=== PATIENT | female | born 1990 | race Caucasian/White ===

== ENCOUNTER 2022-07-06 16:23 | Emergency (ER) | payer BC ==
[2022-07-06 17:23] VITALS: TEMP 98
[2022-07-06] MEDS ORDERED: SODIUM CHLORIDE 0.9% 1,000 ML IV STA (18:36)
[2022-07-06] MEDS ORDERED: diphenhydrAMINE 50 MG/ML 1 ML VIAL IVP STA (18:36)
[2022-07-06] MEDS ORDERED: ACETAMINOPHEN IV (For NPO) 1,000 MG in EMPTY BAG 1 BAG IVPB STA (18:36)
[2022-07-06] MEDS ORDERED: METOCLOPRAMIDE 5 MG/ML 2 ML VIAL IVP STA (18:36)
--- NOTE | 2022-07-06 18:42 | ED ---
Headache HPI - General Chief Complaint: Headache Stated Complaint: Headache-16 weeks preg Time Seen by Provider: 07/06/22 18:02 Source: patient, family, RN notes reviewed Mode of arrival: ambulatory Limitations: no limitations - History of Present Illness Initial Comments: This is a 32-year-old female who is 16 weeks and presents to the emergency department for a headache. A couple of hours ago, she started to develop a headache, blurred vision, light/sound sensitivity, and nausea. She is currently being treated for preeclampsia and gestational diabetes. She takes labetalol 100 mg twice daily, however she has not taken her second dose today because she has felt nauseous. This is her third , and she is a patient of Dr. Tran. She does have an appointment with Dr. Tran in 2 days. She has had gestational diabetes and preeclampsia in her prior pregnancies, however she has never had the symptoms she is having today. Denies any vaginal bleeding or discharge. Denies any fevers, chills, sore throat, cough, dyspnea, chest pain, palpitations, abdominal pain, vomiting, diarrhea, or back pain. MD Complaint: headache Onset Description: gradual Associated Symptoms: nausea, photophobia, sensitivity to sound - Related Data Home Medications Medication Instructions Recorded Confirmed Aspirin EC [Ecotrin Low Dose] 81 mg PO DAILY 07/06/22 07/06/22 Citalopram Hydrobromide [CeleXA] 10 mg PO DAILY 07/06/22 07/06/22 Labetalol [Trandate] 100 mg PO BID 07/06/22 07/06/22 Omeprazole 40 mg PO DAILY 07/06/22 07/06/22 Vit No.179/Iron/Folic 1 tab PO HS 07/06/22 07/06/22 [ Tablet] Allergies Allergy/AdvReac Type Severity Reaction Status Date / Time No Known Allergies Allergy Verified 07/06/22 19:00 Review of Systems ROS Statement: Those systems with pertinent positive or pertinent negative responses have been documented in the HPI. ROS Other: All systems not noted in ROS Statement are negative. Past Medical History Past Medical History: Hypertension History of Any Multi-Drug Resistant Organisms: None Reported Past Surgical History: Cholecystectomy Past Psychological History: No Psychological Hx Reported Smoking Status: Never smoker Past Alcohol Use History: None Reported Past Drug Use History: None Reported General Exam Limitations: no limitations General appearance: alert, in no apparent distress Head exam: Present: atraumatic, normocephalic, normal inspection Eye exam: Present: normal appearance, PERRL, EOMI. Absent: scleral icterus, conjunctival injection, periorbital swelling Neck exam: Present: normal inspection. Absent: tenderness, meningismus, lymphadenopathy Respiratory exam: Present: normal lung sounds bilaterally. Absent: respiratory distress, wheezes, rales, rhonchi, stridor Cardiovascular Exam: Present: regular rate, normal rhythm, normal heart sounds. Absent: systolic murmur, diastolic murmur, rubs, gallop, clicks Neurological exam: Present: alert, oriented X3, CN II-XII intact Psychiatric exam: Present: normal affect, normal mood Skin exam: Present: warm, dry, intact, normal color. Absent: rash Course Vital Signs 07/06/22 07/06/22 07/06/22 17:20 19:20 20:47 Temperature 98 F Pulse Rate 90 78 81 Respiratory 18 18 16 Rate Blood Pressure 146/98 138/88 126/80 O2 Sat by Pulse 98 100 100 Oximetry Medical Decision Making - Medical Decision Making This is a 32-year-old female who presents to the emergency department for a headache, nausea, and light/sound sensitivity. Lab work was nonactionable. While she does have elevated blood pressure, she has no proteinuria or elevated uric acid at this time. heart tones were obtained and found to be within normal limits at 152 bpm. She was given IV fluids, Reglan, Benadryl, and Ofirmev. Patient was a candidate for Ofirmev, as she is and unable to take NSAIDs. She was also nauseous and unable to tolerate oral intake. Patient noted marked improvement after administration of medications. She was unable to take her oral labetalol and vitamin as well as eat a sandwich without difficulty. After the oral labetalol, her blood pressure improved to the 120s systolically. Missing her dose of the labetalol secondary to nausea likely contributed to elevated blood pressure, inducing her symptoms. Patient feels stable for discharge home. She will follow up with Dr. Tran in 2 days as scheduled. Advised dtyy-stw-snxzbwa vitamin B6 and Unisom as needed for nausea and vomiting. She may also take Benadryl and Tylenol for any headaches. Return precautions reviewed in depth, the patient is instructed to return to the emergency department with any new, worsening, or concerning symptoms. Patient verbalized understanding. This case was discussed in detail with the attending ED physician. Presentation, findings, and treatment plan discussed in detail as well. - Lab Data Result diagrams: 07/06/22 18:52 07/06/22 18:52 Lab Results 07/06/22 07/06/22 07/06/22 Range/Units 18:52 18:52 19:07 WBC 8.8 (3.8-10.6) k/uL RBC 4.43 (3.80-5.40) m/uL Hgb 12.3 (11.4-16.0) gm/dL Hct 37.8 (34.0-46.0) % MCV 85.4 (80.0-100.0) fL MCH 27.8 (25.0-35.0) pg MCHC 32.5 (31.0-37.0) g/dL RDW 14.2 (11.5-15.5) % Plt Count 238 (150-450) k/uL MPV 7.5 Neutrophils % 68 % Lymphocytes % 24 % Monocytes % 5 % Eosinophils % 2 % Basophils % 0 % Neutrophils # 6.0 (1.3-7.7) k/uL Lymphocytes # 2.1 (1.0-4.8) k/uL Monocytes # 0.4 (0-1.0) k/uL Eosinophils # 0.1 (0-0.7) k/uL Basophils # 0.0 (0-0.2) k/uL Sodium 138 (137-145) mmol/L Potassium 3.8 (3.5-5.1) mmol/L Chloride 105 (98-107) mmol/L Carbon Dioxide 21 L (22-30) mmol/L Anion Gap 12 mmol/L BUN 4 L (7-17) mg/dL Creatinine 0.43 L (0.52-1.04) mg/dL Est GFR (CKD-EPI)AfAm >90 (>60 ml/min/1.73 sqM) Est GFR (CKD-EPI)NonAf >90 (>60 ml/min/1.73 sqM) Glucose 75 (74-99) mg/dL Uric Acid 2.7 L (3.7-7.4) mg/dL Calcium 9.2 (8.4-10.2) mg/dL Magnesium 1.9 (1.6-2.3) mg/dL Total Bilirubin 0.1 L (0.2-1.3) mg/dL AST 21 (14-36) U/L ALT 14 (4-34) U/L Alkaline Phosphatase 107 (38-126) U/L Total Protein 7.3 (6.3-8.2) g/dL Albumin 4.0 (3.5-5.0) g/dL HCG, Quant 09396.3 mIU/mL Urine Color Colorless Urine Appearance Clear (Clear) Urine pH 7.0 (5.0-8.0) Ur Specific [place] 1.003 (1.001-1.035) Urine Protein Negative (Negative) Urine Glucose (UA) Negative (Negative) Urine Ketones Negative (Negative) Urine Blood Negative (Negative) Urine Nitrite Negative (Negative) Urine Bilirubin Negative (Negative) Urine Urobilinogen <2.0 (<2.0) mg/dL Ur Leukocyte Esterase Negative (Negative) Disposition Clinical Impression: Pre-eclampsia, Headache in Disposition: HOME SELF-CARE Instructions (If sedation given, give patient instructions): Preeclampsia During (ED) Additional Instructions: Return to the emergency department with any new, worsening, or concerning symptoms. Continue taking all of her medications as prescribed. Make sure that you remain well-hydrated. You may take [id number]-ipe-[id number] vitamin B6 and Unisom for any nausea or vomiting. You may also take Benadryl and Tylenol for any headaches. Follow up with Dr. Tran as scheduled. Is patient prescribed a controlled substance at d/c from ED?: No Referrals: Nonstaff,Physician [Primary Care Provider] - 1-2 days
[2022-07-06 19:05] LABS: Basophils % (A) 0 %; Eosinophils # (A) 0.1 k/uL (0-0.7); Eosinophils % (A) 2 %; HCT 37.8 % (34.0-46.0); HGB 12.3 gm/dL (11.4-16.0); Lymphocytes # (A) 2.1 k/uL (1.0-4.8); Lymphocytes % (A) 24 %; MCH 27.8 pg (25.0-35.0); MCHC 32.5 g/dL (31.0-37.0); MCV 85.4 fL (80.0-100.0); Mean Platelet Volume 7.5; Monocytes # (A) 0.4 k/uL (0-1.0); Monocytes % (A) 5 %; Neutrophils % (A) 68 %; Platelet Count 238 k/uL (150-450); RBC 4.43 m/uL (3.80-5.40); RDW 14.2 % (11.5-15.5); WBC 8.8 k/uL (3.8-10.6)
[2022-07-06 19:14] LABS: ALT 14 U/L (4-34); AST 21 U/L (14-36); African American GFR (CKD) >90 (>60 ml/min/1.73 sqM); Alkaline Phosphatase 107 U/L (38-126); Anion Gap 12 mmol/L; Blood Urea Nitrogen 4 mg/dL (7-17); Calcium 9.2 mg/dL (8.4-10.2); Carbon Dioxide 21 mmol/L (22-30); Chloride 105 mmol/L (98-107); Glucose 75 mg/dL (74-99); Magnesium 1.9 mg/dL (1.6-2.3); Non-African American GFR(CKD) >90 (>60 ml/min/1.73 sqM); Potassium 3.8 mmol/L (3.5-5.1); Sodium 138 mmol/L (137-145); Total Bilirubin 0.1 mg/dL (0.2-1.3); Total Protein 7.3 g/dL (6.3-8.2); Uric Acid 2.7 mg/dL (3.7-7.4)
[2022-07-06 19:16] LABS: Appearance,Urine Clear (Clear); Bilirubin,Urine Negative (Negative); Blood,Urine Negative (Negative); Color,Urine Colorless; Glucose,Urine (UA) Negative (Negative); Ketones,Urine Negative (Negative); Leukocyte Esterase,Urine Negative (Negative); Nitrite,Urine Negative (Negative); Protein,Urine Negative (Negative); Specific Gravity,Urine 1.003 (1.001-1.035); Urobilinogen,Urine <2.0 mg/dL (<2.0)
[2022-07-06 20:00] LABS: HCG,Quantitative Serum 18872.3 mIU/mL
[2022-07-06 20:48] VITALS: BP 126/80; PULSE 81; RESP 16
== END 2022-07-06 20:47 | disposition home or self-care (01) ==
LOC: EC 16:23
DX: O14.92 Unspecified pre-eclampsia, second trimester (principal); R51.9 Headache, unspecified; O99.891 Other specified diseases and conditions complicating pregnancy; Z3A.16 16 weeks gestation of pregnancy; Z88.2 Allergy status to sulfonamides; Z79.899 Other long term (current) drug therapy
CPT/HCPCS: 36415; 80053; 83735; 84550; 85025; 81003; 84702; 99284; 96365; 96375; 96361; J1200; J2765; J0131; 99283

== ENCOUNTER 2022-11-01 16:28 | Outpatient (CLI) | payer BC ==
[2022-11-01 17:53] LABS: Appearance,Urine Cloudy (Clear); Bacteria,Urine Many /hpf; Bilirubin,Urine Negative (Negative); Blood,Urine Negative (Negative); Color,Urine Light Yellow; Glucose,Urine (UA) Negative (Negative); Ketones,Urine Negative (Negative); Leukocyte Esterase,Urine Small (Negative); Nitrite,Urine Negative (Negative); PH, Urine 6.5 (5.0-8.0); Protein,Urine Negative (Negative); RBC,Urine 3 /hpf (0-5); Specific Gravity,Urine 1.007 (1.001-1.035); Squamous Epithelial Cell,Urine 8 /hpf (0-4); Urobilinogen,Urine <2.0 mg/dL (<2.0); WBC,Urine 6 /hpf (0-5)
[2022-11-01 17:59] LABS: Creatinine,Urine Random 51.9 mg/dL; Protein/Creatinine Ratio,Urine 0.289
[2022-11-01 19:10] LABS: Basophils % (A) 0 %; Eosinophils # (A) 0.1 k/uL (0-0.7); Eosinophils % (A) 1 %; HCT 28.6 % (34.0-46.0); HGB 9.5 gm/dL (11.4-16.0); Hypochromasia Slight; Lymphocytes # (A) 1.6 k/uL (1.0-4.8); Lymphocytes % (A) 21 %; MCH 27.3 pg (25.0-35.0); MCHC 33.4 g/dL (31.0-37.0); MCV 81.9 fL (80.0-100.0); Mean Platelet Volume 7.9; Monocytes # (A) 0.4 k/uL (0-1.0); Monocytes % (A) 5 %; Neutrophils # (A) 5.6 k/uL (1.3-7.7); Neutrophils % (A) 72 %; Platelet Count 192 k/uL (150-450); RBC 3.49 m/uL (3.80-5.40); RDW 15.5 % (11.5-15.5); WBC 7.8 k/uL (3.8-10.6)
[2022-11-01 19:19] LABS: ALT 14 U/L (4-34); AST 19 U/L (14-36); African American GFR (CKD) >90 (>60 ml/min/1.73 sqM); Blood Urea Nitrogen 4 mg/dL (7-17); LDH 323 U/L (313-618); Non-African American GFR(CKD) >90 (>60 ml/min/1.73 sqM); Uric Acid 3.7 mg/dL (3.7-7.4)
[2022-11-01 20:57] VITALS: BP 140/81; PULSE 96; RESP 16; TEMP 97.8
--- NOTE | 2022-11-17 19:40 | P.MSEPDOC ---
Presenting Problems - Arrival Data Date of Arrival on Unit: 11/01/22 Time of Arrival on Unit: 16:28 Mode of Transport: Ambulatory - Complaint OB-Reason for Admission/Chief Complaint: Headache, Visual Disturbances Comment: Rule out PIH Medical History - Information : 3 Para: 2 Term: 2 : 0 Abortions: Spontaneous or Elective: 0 Number of Living Children: 2 - Gestational Age Gestational Age by CHOCO (wks/days): 33 Weeks and 3 Days Review of Systems - Review of Systems Constitutional: No problems Breast: No problems ENT: No problems Cardiovascular: No problems Respiratory: No problems Gastrointestinal: No problems Genitourinary: No problems Musculoskeletal: No problems Neurological: No problems Skin: No problems Vital Signs - Temperature Temperature: 97.8 F Temperature Source: Oral - Pulse Right Sitting Pulse Rate: 96 Pulse Assessment Method: Automatic Cuff - Respirations Respiratory Rate: 16 Oxygen Delivery Method: Room Air O2 Sat by Pulse Oximetry: 98 - Blood Pressure Right Arm Sitting Blood Pressure: 140/81 Blood Pressure Mean: 100 Blood Pressure Source: Automatic Cuff Medical Screen Scoring - Assessment - Baby A Baseline FHR: 115 Heart Rate - NICHD Category: Category I (Normal) NST: Reactive Physician Notification - Physician Notified Physician Notified Date: 11/01/22 Physician Notified Time: 16:38 Physician: Violeta Tran New Order Received: Yes - Notification Comment Comment: PIH labs, UA sent Maternal Triage Index - Maternal Triage Index Presenting for scheduled procedure w/no complaint: No - Stat/Priority 1 Stat Priority 1: No - Urgent/Priority 2 Urgent Priority 2: No - Prompt/Priority 3 Prompt Priority 3: No - Non-Urgent/Priority 4 Non-Urgent Priority 4: Yes Criteria Met for Priority 4: c/o headache. BP 140/81 Disposition - Disposition OB Disposition: Discharge to home, Written follow up instructions reviewed Discharge Date: 11/01/22 Discharge Time: 19:40 I agree with the RN Medical Screening Exam: No Physician's MSE Comment: Patient seen or examined by myself, and incomplete documentation without workup. Case reviewed; plan agreed upon as documented in EMR&OBIX.: No Diagnosis: RELATED CONDITIONS, UNSPECIFIED, THIRD TRIMESTER
== END 2022-11-01 19:40 | disposition home or self-care (01) ==
LOC: FBPOP 16:28
PROVIDERS: ATTEND Obstetrics & Gynecology Obstetrics
DX: O26.893 Other specified pregnancy related conditions, third trimester (principal); Z3A.33 33 weeks gestation of pregnancy; R51.9 Headache, unspecified; H53.9 Unspecified visual disturbance; Z91.040 Latex allergy status
CPT/HCPCS: 36415; 59025; 81001; 82565; 82570; 83615; 84156; 84450; 84460; 84520; 84550; 85025; 99215

== ENCOUNTER 2022-11-29 21:38 | Outpatient (CLI) | payer BC ==
[2022-11-29 22:40] VITALS: BP 136/78; PULSE 83; RESP 18; TEMP 97.5
--- NOTE | 2022-12-03 10:30 | P.MSEPDOC ---
Presenting Problems - Arrival Data Date of Arrival on Unit: 11/29/22 Time of Arrival on Unit: 21:38 Mode of Transport: Wheelchair - Complaint OB-Reason for Admission/Chief Complaint: Vaginal Bleeding Medical History - Information : 3 Para: 2 Term: 2 : 0 Abortions: Spontaneous or Elective: 0 Number of Living Children: 2 - Gestational Age Gestational Age by CHOCO (wks/days): 37 Weeks and 3 Days - History Complications: GDM Review of Systems - Review of Systems Constitutional: No problems Breast: No problems ENT: No problems Cardiovascular: No problems Respiratory: No problems Gastrointestinal: No problems Genitourinary: No problems Musculoskeletal: No problems Neurological: No problems Skin: No problems Vital Signs - Temperature Temperature: 97.5 F Temperature Source: Temporal Artery Scan - Pulse Right Brachial Pulse Rate: 83 Pulse Assessment Method: Automatic Cuff - Respirations Respiratory Rate: 18 Oxygen Delivery Method: Room Air O2 Sat by Pulse Oximetry: 97 - Blood Pressure Right Arm Blood Pressure: 136/78 Blood Pressure Mean: 97 Blood Pressure Source: Automatic Cuff Medical Screen Scoring - Cervical Exam Dilation (cm): 1 Effacement (%): 60 Station: -3 Membranes: Intact - Assessment - Baby A Baseline FHR: 130 Heart Rate - NICHD Category: Category I (Normal) NST: Reactive Physician Notification - Physician Notified Physician Notified Date: 11/29/22 Physician Notified Time: 22:12 Physician: Ngozi Li Order Received: Yes - Notification Comment Comment: Dr. Li given report on pt. Pt c/o of bright red bleeding on toilet paper after wiping. VS WNL. Reactive NST. Vag exam of 1/thick/high. No blood noted on exam glove. Pt has apt on 12/[address] Tran and is sched. for IOL on 12/03. Orders received to d/c pt to home. To educate pt nothing in vagina until apt on Tuesday. Maternal Triage Index - Non-Urgent/Priority 4 Non-Urgent Priority 4: Yes Criteria Met for Priority 4: Pt reports few spots of bright red blood on toilet paper after wiping. No blood noted in triage. Disposition - Disposition OB Disposition: Physician follow up in office, Discharge to home Discharge Date: 11/29/22 Discharge Time: 22:25 I agree with the RN Medical Screening Exam: Yes Case reviewed; plan agreed upon as documented in EMR&OBIX.: Yes Diagnosis: FALSE LABOR BEFORE 37 COMPLETED WEEKS OF GEST, THIRD TRI
== END 2022-11-29 22:25 | disposition home or self-care (01) ==
LOC: FBPOP 21:38
PROVIDERS: ATTEND Obstetrics & Gynecology
DX: O47.03 False labor before 37 completed weeks of gestation, third trimester (principal); Z3A.37 37 weeks gestation of pregnancy; Z91.040 Latex allergy status
CPT/HCPCS: 59025; 99213

== ENCOUNTER 2022-12-03 05:54 | Inpatient (IN) | payer BC ==
[2022-12-03] MEDS ORDERED: TERBUTALINE 1 MG/ML VIAL SQ PRN (06:05)
[2022-12-03] MEDS ORDERED: LIDOCAINE 0.5% (PF) 5 MG/ML (50 ML SDV) SQ PRN (06:05)
[2022-12-03] MEDS ORDERED: CARBOPROST TROMETHAMINE 250 MCG/ML 1 ML AMP IM PRN (06:05)
[2022-12-03] MEDS ORDERED: METHYLERGONOVINE 0.2 MG/ML 1 ML AMP IM PRN (06:05)
[2022-12-03] MEDS ORDERED: TRANEXAMIC ACID IN NACL,ISO-OS 1,000 MG in EMPTY BAG 1 BAG IV PRN (06:05)
[2022-12-03] MEDS ORDERED: miSOPROStoL 200 MCG TAB PO PRN (06:05)
[2022-12-03] MEDS ORDERED: OXYTOCIN 30 UNITS/500 ML NS 30 UNIT in SALINE 1 500ML.BAG IV SCH ×2 (06:15→20:30)
[2022-12-03] MEDS ORDERED: LACTATED RINGERS 1,000 ML IV SCH (06:15)
[2022-12-03 06:22] LABS: Glucose,Whole Blood 131 mg/dL (70-110)
[2022-12-03 06:36] LABS: Basophils % (A) 0 %; Eosinophils # (A) 0.1 k/uL (0-0.7); Eosinophils % (A) 1 %; HCT 29.6 % (34.0-46.0); HGB 9.4 gm/dL (11.4-16.0); Hypochromasia Slight; Lymphocytes # (A) 1.8 k/uL (1.0-4.8); Lymphocytes % (A) 25 %; MCH 24.6 pg (25.0-35.0); MCHC 31.7 g/dL (31.0-37.0); MCV 77.5 fL (80.0-100.0); Mean Platelet Volume 7.9; Microcytosis Slight; Monocytes # (A) 0.3 k/uL (0-1.0); Monocytes % (A) 4 %; Neutrophils # (A) 4.9 k/uL (1.3-7.7); Neutrophils % (A) 68 %; Platelet Count 239 k/uL (150-450); RBC 3.82 m/uL (3.80-5.40); WBC 7.2 k/uL (3.8-10.6)
[2022-12-03 06:38] VITALS: RESP 16
[2022-12-03] MEDS: LACTATED RINGERS 1,000 ML IV SCH ×4 (06:40→17:55)
[2022-12-03] MEDS: OXYTOCIN 30 UNITS/500 ML NS 30 UNIT in SALINE 1 500ML.BAG IV SCH ×2 (06:51→20:50)
[2022-12-03] MEDS ORDERED: LABETALOL 100 MG TAB PO SCH (09:00)
--- NOTE | 2022-12-03 09:08 | P.HPOB ---
History of Present Illness H&P Date: 12/03/22 Chief Complaint: IUP @ 38 weeks, GDM, HTN This is a 32 yo at 38 weeks EDC 12/17 based on LMP c/w first trimester US. Patient has been receiving routine care with myself which has been complicated by diagnosis of gestational diabetes. Patient had gestational diabetes with her prior pregnancies. Blood sugars have been good throughout the . Patient in addition has a diagnosis of hypertension which is been controlled on labetalol 100 mg twice a day. Patient notes good movement denies contractions vaginal bleeding or loss of fluid. On blood work patient's blood type of O+, rubella status immune, RPR is nonreactive, hep Pretty surface antigen is negative, HIV is negative. Patient did fail her 1 hour gestational diabetes screen without audible 142 given her prior history she requested to just be treated as a diabetic in not to her 3 hour gtt. Group beta strep culture was negative on 11/23. Review of Systems Constitutional: Denies chills, Denies fatigue, Denies fever Ears, nose, mouth and throat: Denies headache Cardiovascular: Reports leg edema Respiratory: Denies dyspnea Gastrointestinal: Denies constipation, Denies diarrhea, Denies nausea, Denies vomiting Genitourinary: Reports Past Medical History Past Medical History: Hypertension Additional Past Medical History / Comment(s): GDM History of Any Multi-Drug Resistant Organisms: None Reported Past Surgical History: Cholecystectomy Past Anesthesia/Blood Transfusion Reactions: No Reported Reaction Past Psychological History: No Psychological Hx Reported Smoking Status: Never smoker Past Alcohol Use History: None Reported Past Drug Use History: None Reported - Past Family History Mother Additional Family Medical History / Comment(s): Bipolar Medications and Allergies Home Medications Medication Instructions Recorded Confirmed Type Citalopram Hydrobromide [CeleXA] 10 mg PO DAILY 07/06/22 12/03/22 History Labetalol [Trandate] 100 mg PO DAILY 07/06/22 12/03/22 History Omeprazole 40 mg PO DAILY 07/06/22 12/03/22 History Vit No.179/Iron/Folic 1 tab PO HS 07/06/22 12/03/22 History [ Tablet] Allergies Allergy/AdvReac Type Severity Reaction Status Date / Time latex AdvReac Itching Verified 12/03/22 06:02 Exam Osteopathic Statement: *. No significant issues noted on an osteopathic structural exam other than those noted in the History and Physical/Consult. Vital Signs Temp Pulse Resp BP Pulse Ox 12/03/22 06:01 96.9 F L 92 16 136/91 97 Intake and Output 12/02/22 12/03/22 12/03/22 22:59 06:59 14:59 Other: Weight 83.915 kg Targeted physical exam is performed and state in general this a well-nourished well-developed female in no acute distress reading is noted to be nonlabored, heart has a regular rhythm, abdomen is gravid and appropriate for gestational age, exam she is 2/50/-2 station amniotomy is performed and clear fluid was obtained. heart tones are noted to be category 1 and she is yandel every 3 minutes. Results Result Diagrams: 12/03/22 06:17 Abnormal Lab Results - Last 24 Hours (Table) 12/03/22 12/03/22 Range/Units 06:17 06:20 Hgb 9.4 L (11.4-16.0) gm/dL Hct 29.6 L (34.0-46.0) % MCV 77.5 L (80.0-100.0) fL MCH 24.6 L (25.0-35.0) pg RDW 16.0 H (11.5-15.5) % POC Glucose (mg/dL) 131 H (70-110) mg/dL Assessment and Plan (1) Term Current Visit: Yes Status: Acute Code(s): Z34.90 - ENCNTR FOR SUPRVSN OF NORMAL , UNSP, UNSP TRIMESTER SNOMED Code(s): 80919620 (2) GDM (gestational diabetes mellitus), class A1 Current Visit: Yes Status: Acute Code(s): O24.410 - GESTATIONAL DIABETES MELLITUS IN , DIET CONTROLLED SNOMED Code(s): 13118188 (3) HTN (hypertension) Current Visit: Yes Status: Acute Code(s): I10 - ESSENTIAL (PRIMARY) HYPERTENSION SNOMED Code(s): 38199459 Plan: This is a 32 yo at 38 weeks that presents for induction of labor s econdary to GDM, HTN. Patient is admitted to labor and delivery and Pitocin induction of labor is begun. Once regular contractions were appreciated amniotomy was performed and clear fluid was obtained. Patient is offered epidural, Stadol, or nitrous for pain control during labor. Patient states she does wish epidural placement when appropriate. Anticipate spontaneous vaginal delivery later today.
[2022-12-03] MEDS ORDERED: BUTORPHANOL 1 MG/ML 1 ML VIAL IV PRN (09:09)
[2022-12-03] MEDS ORDERED: fentaNYL (PF) 50 MCG/ML 5 ML AMP ONE (12:19)
[2022-12-03] MEDS ORDERED: SODIUM CHLORIDE 0.9% 100 ML BAG ONE (12:19)
[2022-12-03] MEDS ORDERED: ROPIVACAINE 5 MG/ML 20 ML AMPULE ONE (12:19)
[2022-12-03] MEDS ORDERED: diphenhydrAMINE 50 MG/ML 1 ML VIAL IVP PRN ×2 (20:23)
[2022-12-03] MEDS ORDERED: diphenhydrAMINE 50 MG CAP PO PRN (20:23)
[2022-12-03] MEDS ORDERED: diphenhydrAMINE 25 MG CAP PO PRN (20:23)
[2022-12-03] MEDS ORDERED: LANOLIN CREAM 5 GM TUBE TOPICAL PRN (20:23)
[2022-12-03] MEDS ORDERED: BENZOCAINE/MENTHOL SPRAY 1 GM/SPRAY AEROSOL TOPICAL PRN (20:23)
[2022-12-03] MEDS ORDERED: ZOLPIDEM 5 MG TAB PO PRN (20:23)
[2022-12-03] MEDS ORDERED: HYDROCORTISONE 2.5% RECTAL CREAM 30 GM TUBE RECTAL PRN (20:23)
[2022-12-03] MEDS ORDERED: SIMETHICONE 80 MG CHEWABLE PO PRN (20:23)
--- NOTE | 2022-12-03 20:28 | P.PROBDLV ---
Vaginal Delivery Note - . Vaginal Delivery Note: 32-year-old 3 para 2001 at 30-0/7 weeks that presented for induction of labor secondary to gestational diabetes and chronic hypertension. Patient has been receiving routine care with myself which has been essentially uncomplicated despite diagnosis of gestational diabetes and hypertension. Blood sugars have been well controlled. Blood pressures have been controlled with oral labetalol. Patient was admitted to labor and delivery in labor was begun. Amniotomy was performed and clear fluid was obtained. Patient progressed through labor eventually becoming uncomfortable and requested epidural placement. Epidural was placed without difficulty by the anesthesia department. Patient made slow progress through labor but eventually was noted to be complete. Patient began pushing in occiput posterior presentation was suspected. Patient continued pushing and with excellent maternal effort brought the infant down to a presentation, occiput posterior presentation was noted. Patient had a normal spontaneous vaginal delivery of a viable male at 1954, after two-minute delayed the umbilical cord was doubly clamped and cut. Spontaneous cry was appreciated. The placenta was delivered spontaneous intact with a three-vessel cord being noted. Uterus is noted be firm and below the umbilicus. Latex free catheter was placed and approximately 100 mL of clear yellow urine was obtained. Inspection of the patient's vaginal vault a second-degree vaginal laceration was appreciated. This was repaired in the usual fashion with 3-0 Rapide. Estimated blood loss 200 mL Patient and tolerated delivery well and are resting comfortably. All counts are noted to be correct 2 at the end of delivery.
[2022-12-03] MEDS: IBUPROFEN 600 MG TAB PO SCH (20:31)
[2022-12-03] MEDS: LABETALOL 100 MG TAB PO SCH (20:46)
[2022-12-03] MEDS: PRENATAL VIT-IRON-FOLIC ACID 1 EACH TABLET PO SCH (20:46)
[2022-12-04] MEDS: IBUPROFEN 600 MG TAB PO SCH ×4 (02:30→18:45)
[2022-12-04 08:12] LABS: Basophils % (A) 0 %; Eosinophils # (A) 0.1 k/uL (0-0.7); Eosinophils % (A) 1 %; HCT 26.6 % (34.0-46.0); HGB 8.8 gm/dL (11.4-16.0); Hypochromasia Slight; Lymphocytes # (A) 1.9 k/uL (1.0-4.8); Lymphocytes % (A) 17 %; MCH 25.7 pg (25.0-35.0); Mean Platelet Volume 8.3; Microcytosis Slight; Monocytes # (A) 0.5 k/uL (0-1.0); Monocytes % (A) 5 %; Neutrophils # (A) 8.2 k/uL (1.3-7.7); Neutrophils % (A) 76 %; Platelet Count 199 k/uL (150-450); RBC 3.42 m/uL (3.80-5.40); WBC 10.9 k/uL (3.8-10.6)
[2022-12-04] MEDS: SENNOSIDES-DOCUSATE SODIUM 1 EACH TAB PO SCH ×2 (08:27→21:06)
[2022-12-04] MEDS: LABETALOL 100 MG TAB PO SCH ×2 (08:27→21:06)
[2022-12-04] MEDS: CITALOPRAM HYDROBROMIDE 10 MG TAB PO SCH (08:27)
--- NOTE | 2022-12-04 09:17 | P.PNOBGVD ---
Subjective - Subjective Principal diagnosis: day #1 status post normal spontaneous vaginal delivery Interval history: Patient is doing well this morning. She is ambulating and voiding without difficulty. She is tolerating a regular diet without nausea or vomiting. States her pain is well-controlled. Lochia is moderate. There remains in the nursery on high flow oxygen. Patient reports: Reports appetite normal, Reports voiding normally, Reports pain well controlled, Reports ambulating normally [place]: doing well (In nursery on high flow oxygen) Objective - Latest Vital Signs Latest vital signs: Vital Signs Temp Pulse Resp BP Pulse Ox 12/04/22 08:00 97.7 F 68 16 138/89 99 12/04/22 04:00 97.9 F 84 16 136/76 12/03/22 23:50 98.4 F 80 16 130/77 12/03/22 22:08 78 16 122/80 12/03/22 21:38 78 16 130/71 12/03/22 21:08 76 16 134/72 12/03/22 20:53 90 16 138/69 12/03/22 20:38 85 16 125/59 12/03/22 20:23 85 16 131/66 12/03/22 20:12 97.8 F 95 16 141/76 Intake and Output 12/03/22 12/04/22 12/04/22 22:59 06:59 14:59 Intake Total 283.833 Output Total 475 Balance -191.167 Intake: Intake, IV Titration 283.833 Amount Oxytocin 30 Units/500 ml 283.833 Ns 30 unit In Saline 1 500ml.bag @ Per Protocol IV .Q0M [facility] Rx#:[id number] Output: Urine 100 Estimated Blood Loss 200 Output, Quantitative 175 Blood Loss Other: # Voids 1 1 - Exam Extremities: Present: normal, edema Abdomen: Present: normal appearance, soft Uterus: Present: normal, firm - Labs Labs: Abnormal Lab Results - Last 24 Hours (Table) 12/04/22 Range/Units 07:58 WBC 10.9 H (3.8-10.6) k/uL RBC 3.42 L (3.80-5.40) m/uL Hgb 8.8 L (11.4-16.0) gm/dL Hct 26.6 L (34.0-46.0) % MCV 78.0 L (80.0-100.0) fL RDW 16.0 H (11.5-15.5) % Neutrophils # 8.2 H (1.3-7.7) k/uL Assessment and Plan (1) Term Current Visit: Yes Status: Acute Code(s): Z34.90 - ENCNTR FOR SUPRVSN OF NORMAL , UNSP, UNSP TRIMESTER SNOMED Code(s): 65126750 (2) GDM (gestational diabetes mellitus), class A1 Current Visit: Yes Status: Acute Code(s): O24.410 - GESTATIONAL DIABETES MELLITUS IN , DIET CONTROLLED SNOMED Code(s): 91903432 (3) HTN (hypertension) Current Visit: Yes Status: Acute Code(s): I10 - ESSENTIAL (PRIMARY) HYPERTENSION SNOMED Code(s): 53476307 (4) Status post vaginal delivery Current Visit: Yes Status: Acute Code(s): BNZ1086 - SNOMED Code(s): 144002612 (5) Occiput posterior presentation of fetus Current Visit: Yes Status: Acute Code(s): O64.0XX0 - OBSTRUCTED LABOR DUE TO INCMPL ROTATION OF HEAD, UNSP SNOMED Code(s): 10865866 Plan: 32-year-old status post normal spontaneous vaginal delivery. Patient is doing well . Given infant is in the nursery will stay an additional day. Continue routine care and anticipate discharge home tomorrow
[2022-12-04] MEDS: ACETAMINOPHEN TAB 325 MG TAB PO PRN ×3 (10:11→21:04)
[2022-12-04] MEDS: PRENATAL VIT-IRON-FOLIC ACID 1 EACH TABLET PO SCH (21:06)
[2022-12-05] MEDS: IBUPROFEN 600 MG TAB PO SCH ×3 (00:04→19:13)
[2022-12-05] MEDS: LABETALOL 100 MG TAB PO SCH ×2 (08:38→20:57)
[2022-12-05] MEDS: CITALOPRAM HYDROBROMIDE 10 MG TAB PO SCH (08:39)
[2022-12-05] MEDS: ACETAMINOPHEN TAB 325 MG TAB PO PRN ×2 (08:39→17:21)
[2022-12-05] MEDS: SENNOSIDES-DOCUSATE SODIUM 1 EACH TAB PO SCH ×2 (08:45→19:17)
--- NOTE | 2022-12-05 09:31 | P.DS ---
Providers Date of admission: 12/03/22 05:54 Expected date of discharge: 12/05/22 Attending physician: Violeta Tran Primary care physician: Physician Nonstaff - Discharge Diagnosis(es) (1) Term Current Visit: Yes Status: Acute (2) GDM (gestational diabetes mellitus), class A1 Current Visit: Yes Status: Acute (3) HTN (hypertension) Current Visit: Yes Status: Acute (4) Status post vaginal delivery Current Visit: Yes Status: Acute (5) Occiput posterior presentation of fetus Current Visit: Yes Status: Acute Hospital Course: This is a 32-year-old 3 now para 3 that presented to labor and delivery on 12/03 for scheduled induction of labor secondary to gestational diabetes and chronic hypertension. Patient's care has been essentially uncomplicated despite diagnosis of GDM and hypertension. Her sugars have been well-controlled hypertension has been controlled on oral labetalol. For full details on this patient please see the dictated history and physical. Patient was admitted and Pitocin induction of labor was begun. Patient made slow progress through labor but did become uncomfortable and requested epidural placement. Epidural was placed without difficulty by the anesthesia department. Patient progressed slowly toward complete and began pushing. Patient had a normal spontaneous vaginal delivery of a viable male infant at 1954, weight of 6 lbs. 9 oz. in an occiput posterior presentation. Apgars of 7 and 8 at one and 5 minutes respectively. did end up going to special care nursery for high flow oxygen and on this day #2 is currently doing well on room air. Anticipate discharge home of the tomorrow. Mom continues to do well. She is ambulating and voiding without difficulty, she states her pain is well- controlled. She denies concerns. She states she is ready for discharge home. Patient Condition at Discharge: Good Plan - Discharge Summary New Discharge Prescriptions: No Action Omeprazole 40 mg PO DAILY Labetalol [Trandate] 100 mg PO DAILY Citalopram Hydrobromide [CeleXA] 10 mg PO DAILY Vit No.179/Iron/Folic [ Tablet] 1 tab PO HS Discharge Medication List Citalopram Hydrobromide [CeleXA] 10 mg PO DAILY 07/06/22 [History] Labetalol [Trandate] 100 mg PO DAILY 07/06/22 [History] Omeprazole 40 mg PO DAILY 07/06/22 [History] Vit No.179/Iron/Folic [ Tablet] 1 tab PO HS 07/06/22 [History] Follow up Appointment(s)/Referral(s): Violeta Tran DO [Doctor of Osteopathic Medicine] - 4 Weeks Patient Instructions/Handouts: Vaginal Delivery (GEN), Vaginal Delivery (DC) Activity/Diet/Wound Care/Special Instructions: Ekaa-ltt-ximorhb ibuprofen as needed for pain. No tub baths or intercourse until 6 weeks . Patient is to call and schedule routine visit in 4 weeks . Patient is to call the office should she have any concerns prior to this routine appointment. Discharge Disposition: HOME SELF-CARE
[2022-12-05 15:16] VITALS: TEMP 98
[2022-12-05 19:43] VITALS: BP 157/92; PULSE 64
[2022-12-05] MEDS: PRENATAL VIT-IRON-FOLIC ACID 1 EACH TABLET PO SCH (20:57)
== END 2022-12-05 20:59 | disposition home or self-care (01) | DRG 806 ==
LOC: 4FBP 05:54
PROVIDERS: ADMIT Obstetrics & Gynecology Obstetrics; ATTEND Obstetrics & Gynecology Obstetrics
PROC: 0KQM0ZZ Repair Perineum Muscle, Open Approach (ICD-10-PCS; principal; 2022-12-03)
PROC: 10E0XZZ Delivery of Products of Conception, External Approach (ICD-10-PCS; principal; 2022-12-03)
PROC: 3E033VJ Introduction of Other Hormone into Peripheral Vein, Percutaneous Approach (ICD-10-PCS; 2022-12-03)
PROC: 10907ZC Drainage of Amniotic Fluid, Therapeutic from Products of Conception, Via Natural or Artificial Opening (ICD-10-PCS; 2022-12-03)
DX: O24.420 Gestational diabetes mellitus in childbirth, diet controlled (principal); O10.92 Unspecified pre-existing hypertension complicating childbirth; Z37.0 Single live birth; Z28.310 Unvaccinated for COVID-19; O70.1 Second degree perineal laceration during delivery; Z3A.38 38 weeks gestation of pregnancy; Z79.899 Other long term (current) drug therapy; Z91.040 Latex allergy status
CPT/HCPCS: 85025; 86850; 86900; 86901

== ENCOUNTER 2022-12-08 23:01 | Inpatient (IN) | payer BC ==
[2022-12-08 23:34] LABS: Appearance,Urine Clear (Clear); Bilirubin,Urine Negative (Negative); Blood,Urine Negative (Negative); Color,Urine Colorless; Glucose,Urine (UA) Negative (Negative); Ketones,Urine Negative (Negative); Leukocyte Esterase,Urine Negative (Negative); Nitrite,Urine Negative (Negative); Protein,Urine Negative (Negative); Specific Gravity,Urine 1.002 (1.001-1.035); Urobilinogen,Urine <2.0 mg/dL (<2.0)
[2022-12-08] MEDS ORDERED: MAGNESIUM SULFATE GM 6 GM in SODIUM CHLORIDE 0.9% 100 ML IVPB ONE (23:39)
[2022-12-08] MEDS ORDERED: hydrALAZINE HCL 20 MG/ML 1 ML VIAL IVP PRN (23:39)
[2022-12-08] MEDS ORDERED: CALCIUM GLUCONATE 1 GM/10 ML VIAL IV PRN (23:39)
[2022-12-08] MEDS ORDERED: LABETALOL 5 MG/ML VIAL MDV IVP PRN ×3 (23:39)
[2022-12-08 23:49] LABS: Creatinine,Urine Random 11.9 mg/dL; Protein/Creatinine Ratio,Urine 1.765
[2022-12-09] LABS: Anisocytosis Slight; Basophils % (A) 0 %; Eosinophils # (A) 0.3 k/uL (0-0.7); Eosinophils % (A) 3 %; HCT 29.8 % (34.0-46.0); HGB 9.7 gm/dL (11.4-16.0); Lymphocytes # (A) 2.1 k/uL (1.0-4.8); Lymphocytes % (A) 26 %; MCH 25.6 pg (25.0-35.0); MCHC 32.5 g/dL (31.0-37.0); MCV 78.8 fL (80.0-100.0); Mean Platelet Volume 7.2; Microcytosis Slight; Monocytes # (A) 0.4 k/uL (0-1.0); Monocytes % (A) 5 %; Neutrophils # (A) 5.1 k/uL (1.3-7.7); Neutrophils % (A) 64 %; Platelet Count 279 k/uL (150-450); RBC 3.78 m/uL (3.80-5.40); RDW 16.6 % (11.5-15.5); WBC 7.9 k/uL (3.8-10.6)
[2022-12-09] MEDS: LACTATED RINGERS 1,000 ML IV SCH ×2 (00:20→09:57)
[2022-12-09] MEDS ORDERED: SODIUM CHLORIDE 0.9% 100 ML BAG ONE (00:20)
[2022-12-09] MEDS ORDERED: MAGNESIUM SULFATE 500 MG/ML 20 ML VIAL ONE (00:20)
[2022-12-09 00:26] LABS: ALT 29 U/L (4-34); AST 31 U/L (14-36); African American GFR (CKD) >90 (>60 ml/min/1.73 sqM); Blood Urea Nitrogen 9 mg/dL (7-17); LDH 620 U/L (313-618); Non-African American GFR(CKD) >90 (>60 ml/min/1.73 sqM); Uric Acid 4.9 mg/dL (3.7-7.4)
[2022-12-09] MEDS: MAGNESIUM SULFATE-WATER PMX 20 GM in WATER FOR INJECTION 1 500ML.BAG IV SCH ×3 (00:43→19:55)
[2022-12-09] MEDS ORDERED: LABETALOL 100 MG TAB PO SCH (09:00)
[2022-12-09] MEDS: CITALOPRAM HYDROBROMIDE 10 MG TAB PO SCH (11:51)
[2022-12-09] MEDS ORDERED: IBUPROFEN 600 MG TAB PO STA (13:50)
[2022-12-09] MEDS ORDERED: IBUPROFEN 600 MG TAB PO PRN (13:54)
[2022-12-09] MEDS: ACETAMINOPHEN TAB 325 MG TAB PO PRN ×2 (14:08→20:16)
--- NOTE | 2022-12-09 15:01 | P.HPOB ---
History of Present Illness H&P Date: 12/09/22 Chief Complaint: HTN, PPD 5 32-year-old status post normal spontaneous vaginal delivery approximately 5 days ago. Patient presented last evening with complaints of headache and elevated blood pressures. Patient has known essential hypertension and is on la betalol 50 mg twice daily. Patient's blood pressures have been well controlled throughout the . Patient had negative preeclampsia labs on admission but did see receive IV labetalol 40 mg. Patient was begun on 100 mg labetalol twice daily. Patient remains asymptomatic with the exception of a mild headache. Allan was draining clear yellow urine throughout the night. Review of Systems Constitutional: Reports fatigue, Denies chills, Denies fever Ears, nose, mouth and throat: Reports headache Cardiovascular: Reports leg edema Respiratory: Denies dyspnea Gastrointestinal: Denies constipation, Denies diarrhea, Denies nausea, Denies vomiting Genitourinary: Reports Past Medical History Past Medical History: Hypertension Additional Past Medical History / Comment(s): GDM History of Any Multi-Drug Resistant Organisms: None Reported Past Surgical History: Cholecystectomy Past Anesthesia/Blood Transfusion Reactions: No Reported Reaction Past Psychological History: No Psychological Hx Reported Smoking Status: Never smoker Past Alcohol Use History: None Reported Past Drug Use History: None Reported - Past Family History Mother Additional Family Medical History / Comment(s): Bipolar Medications and Allergies Home Medications Medication Instructions Recorded Confirmed Type Citalopram Hydrobromide [CeleXA] 10 mg PO DAILY 07/06/22 12/08/22 History Labetalol [Trandate] 100 mg PO DAILY 07/06/22 12/08/22 History Omeprazole 40 mg PO DAILY 07/06/22 12/08/22 History Vit No.179/Iron/Folic 1 tab PO HS 07/06/22 12/08/22 History [ Tablet] Allergies Allergy/AdvReac Type Severity Reaction Status Date / Time latex AdvReac Itching Verified 12/08/22 23:10 Exam Osteopathic Statement: *. No significant issues noted on an osteopathic structural exam other than those noted in the History and Physical/Consult. Vital Signs Temp Pulse Resp BP Pulse Ox 12/09/22 08:00 97.2 F L 90 16 134/92 12/09/22 06:00 70 15 156/95 12/09/22 05:00 97.2 F L 68 16 154/83 100 01/12/23 04:00 85 16 121/71 97 12/09/22 03:00 60 16 156/81 96 12/09/22 02:00 62 14 142/85 12/09/22 01:00 60 16 138/72 12/09/22 00:51 67 18 139/83 99 12/09/22 00:45 60 16 139/82 100 12/09/22 00:39 68 16 141/79 99 12/09/22 00:30 99 16 152/77 99 12/09/22 00:15 97.6 F 57 L 16 184/93 100 12/08/22 23:45 52 L 18 181/92 Intake and Output 12/08/22 12/09/22 12/09/22 22:59 06:59 14:59 Output Total 4400 800 Balance -4400 -800 Output: Urine 4400 800 Uretheral (Allan) 1100 Other: # Voids 1 Weight 81.647 kg 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 Uterus is firm and below the umbilicus. Results Result Diagrams: 12/08/22 23:48 12/08/22 23:48 Abnormal Lab Results - Last 24 Hours (Table) 12/08/22 12/08/22 Range/Units 23:48 23:48 RBC 3.78 L (3.80-5.40) m/uL Hgb 9.7 L (11.4-16.0) gm/dL Hct 29.8 L (34.0-46.0) % MCV 78.8 L (80.0-100.0) fL RDW 16.6 H (11.5-15.5) % Lactate Dehydrogenase 620 H (313-618) U/L Assessment and Plan (1) hypertension Current Visit: Yes Status: Acute Code(s): O16.5 - UNSPECIFIED MATERNAL HYPERTENSION, COMP THE PUERPERIUM SNOMED Code(s): 42946377 (2) Status post vaginal delivery Current Visit: No Status: Acute Code(s): OLB9802 - SNOMED Code(s): 017165539 Plan: 32-year-old status post normal spontaneous vaginal delivery approximately 5 days ago. Patient does have a known history of essential hypertension and was on the labetalol prior to admission. Patient came in last evening with complaints of headache and elevated blood pressures 180s over 90s. Patient was admitted and magnesium sulfate GTT was begun. Patient's labs were essentially normal overnight. This morning patient is feeling mildly improved with a mild headache remaining. We'll continue magnesium for 12 hours. We'll monitor blood pressures closely and adjust labetalol as needed.
--- NOTE | 2022-12-09 15:22 | P.PN ---
Progress Note - Text Progress Note Date: 12/09/22 32-year-old status post normal spontaneous vaginal delivery approximately 5 days ago with known essential hypertension. Patient had been treated with labetalol throughout the . Patient states last evening elevated blood pressures began. The current history and physical for full details of admission. Patient has since had her magnesium discontinued after 12 hours. Blood pressures noted to be 130s 150s over 90s. Labetalol was increased to 200 mg twice daily from 100 mg. Patient's headache that she noted with the magnesium is slowly subsiding after a dose of Tylenol. Allan catheter was discontinued, urine output was good throughout the night and day. A/ s/p PP HTN she doesnt appear to PP pre e to me upon evaluation P/ increase labetalol to 200 mg bid anticipate d/c home tomorrow
[2022-12-09] MEDS: LABETALOL 200 MG TAB PO SCH (17:27)
[2022-12-10] MEDS: LABETALOL 200 MG TAB PO SCH ×3 (00:20→21:50)
[2022-12-10] MEDS: CITALOPRAM HYDROBROMIDE 10 MG TAB PO SCH (08:06)
[2022-12-10] MEDS ORDERED: NIFEdipine XL 30 MG TAB.ER.24 PO STA (11:03)
--- NOTE | 2022-12-10 11:22 | P.PN ---
Subjective Progress Note Date: 12/10/22 Principal diagnosis: preeclampsia the patient 40 having no symptoms of any kind today. She specifically denies headaches, scotomata, or epigastric pain. There is no significant edema. She is otherwise performing all activities of daily living and would like to go h ome. Objective - Vital Signs Vital signs: Vital Signs Temp 98.3 F 12/10/22 08:08 Pulse 68 12/10/22 10:56 Resp 16 12/10/22 08:08 BP 171/102 12/10/22 10:56 Pulse Ox 97 12/09/22 15:09 FiO2 Intake & Output 12/09/22 12/10/22 12/10/22 18:59 06:59 18:59 Intake Total 460 Output Total 3400 Balance -2940 Weight 76.975 kg Intake: Intake, IV Titration 460 Amount Magnesium Sulfate-Water 460 Pmx 20 gm In Water For Injection 1 500ml.bag @ 2 GM/HR 50 mls/hr IV .Q10H ANGELO Rx#:[id number] Output: Urine 3400 Uretheral (Allan) 300 Other: # Voids 1 - Exam in general, this is a well-developed, well-nourished white female in no acute distress. Her fundus is tonic and nontender below the umbilicus. She has no significant edema in her extremities. - Labs CBC & Chem 7: 12/08/22 23:48 12/08/22 23:48 Assessment and Plan (1) hypertension Current Visit: Yes Status: Acute Code(s): O16.5 - UNSPECIFIED MATERNAL HYPE RTENSION, COMP THE PUERPERIUM SNOMED Code(s): 11240441 Plan: the patient's blood pressures remained labile and relatively high despite labetalol 200 mg twice daily. Her pressures are too high to allow discharge at this time despite her lack of symptoms. Procardia XL 30 mg has been ordered stat at this time and then once daily. The patient does have the capability to follow blood pressures at home once she is discharged but I have discussed with her that she is not stable for discharge at this time. Continue observation with closer interval blood pressures after the addition of Procardia XL 30 mg.
[2022-12-10] MEDS ORDERED: hydrALAZINE HCL 20 MG/ML 1 ML VIAL IVP STA (16:16)
[2022-12-10] MEDS ORDERED: NIFEdipine XL 30 MG TAB.ER.24 PO SCH (16:30)
[2022-12-10] MEDS ORDERED: LABETALOL 5 MG/ML VIAL MDV IVP PRN (16:30)
[2022-12-10] MEDS ORDERED: NIFEdipine 10 MG CAP PO SCH (16:45)
[2022-12-10] MEDS ORDERED: ALPRAZolam 0.5 MG TAB PO PRN (16:51)
[2022-12-10] MEDS ORDERED: hydrALAZINE HCL 20 MG/ML 1 ML VIAL IVP PRN (16:53)
--- NOTE | 2022-12-10 16:57 | P.CONS ---
History of Present Illness - Reason for Consult Consult date: 12/10/22 Medical management, hypertension Requesting physician: Frank Levy - Chief Complaint hypertension - History of Present Illness History of Presenting Illness: Patient is a 32-year-old female with a past medical history of anxiety, GERD, preeclampsia and gestational diabetes. She is currently admitted to mother baby unit status post vaginal delivery of her third child (healthy baby boy) on 12/03/22 () followed by discharge on 12/05/22 and returned 5 days later on 12/09/22 with a chief complaint of headache, visual changes and elevated blood pressures. Patient received magnesium infusion, placed on Labetalol 200 mg twice a day and started on nifedipine XL 30 mg daily. Patient did have full resolution of previously reported headache and visual changes but continued to be in hypertensive urgency. Patient's blood pressure 191/102 and we were consulted for assistance with management. Patient seen and fully evaluated at bedside. Patient admits to history of preeclampsia with her first child and gestational diabetes throughout all 3 pregnancies. She otherwise denies having any medical history with the exception of anxiety and GERD. Patient reports she does feel anxious and is very worried because she does not want to get transferred off of mother baby unit because she wants to stay with her baby, she also reports having uncontrolled heartburn since delivery of her baby 7 days ago. Patient states she is not breast-feeding. With the exception of feeling anxious and currently having heartburn patient denies having any headache, changes in vision or hearing, chest pain, palpitations, shortness of breath, or experiencing any numbness/tingling/weakness or swelling in her extremities. Previous labs drawn on 12/08/22 reviewed and stable with hemoglobin of 9.7. Urinalysis was negative for infection. At this time patient to receive hydralazine 10 mg IV push followed by an additional dose of nifedipine 30 mg. We will also treat patient for reports of acid reflux with a GI cocktail. EKG to be obtained. Patient instructed that she may stay on mother baby unit as long as we can obtain control over her blood pressures, however blood pressures remain elevated patient will need to be transferred to a telemetry unit. Review of systems: Pertinent positives and negatives as discussed in HPI, a complete review of systems was performed and all other systems are negative. Physical exam: Vital signs reviewed and stable. General: Nontoxic, no distress and appears stated age. Derm: Skin warm and dry, normal coloration for ethnicity. Head: Atraumatic, normocephalic and symmetric. Eyes: EOMs intact, no lid lag, and anicteric sclera Mouth: no lip lesions, mucus membranes moist Cardiovascular: regular rate and rhythm with normal S1S2, no murmur, positive posterior tibial pulses bilaterally, and cap refill < 2 seconds. Lungs: Respirations even, regular, and unlabored on room air. Lungs CTA bilaterally, no rhonchi, no rales, no wheezing, and no accessory muscle usage. Abdominal: soft, nontender to palpation, no guarding Ext: ROM intact. No gross muscle atrophy, no edema, no contractures Neuro: Speech clear, face symmetrical and CN II-XII grossly intact with no noted focal neuro deficits Psych: Alert and oriented to person, place, time, and situation. Appropriate and pleasant affect. Assessment and Plan of Care: preeclampsia -At this time patient to receive hydralazine 10 mg IV push followed by an additional dose of nifedipine 30 mg. -Labetalol to remain 200 mg by mouth twice daily and nifedipine XL increased to 60 mg daily beginning tomorrow. -EKG to be obtained. -Repeat CBC, CMP, and magnesium. -Vital signs to be assessed every 2 hours and as needed. Uncontrolled GERD -Order placed for GI cocktail with Maalox/Lidocaine/Hyoscyamine and patient may then resume omeprazole daily. Anxiety -Patient to continue Celexa in order placed for Xanax when necessary for severe anxiety. Patient is not breast-feeding. Thank you for allowing us to participate in the care of this pleasant patient. Do not hesitate to contact us with questions. Someone can be reached from the [facility] hospitalist group all hours of the day at [phone] or via [employer].. Arash Pelaez NP rendered care for this patient independently, reviewed the findings and plan as documented in the note above. I did not physically speak with or examine the patient on this date. Discussed at length, if BP continues to be elevated will need transfer to 3S/ICU for tele monitoring Past Medical History Past Medical History: Hypertension Additional Past Medical History / Comment(s): GDM History of Any Multi-Drug Resistant Organisms: None Reported Past Surgical History: Cholecystectomy Past Anesthesia/Blood Transfusion Reactions: No Reported Reaction Past Psychological History: No Psychological Hx Reported Smoking Status: Never smoker Past Alcohol Use History: None Reported Past Drug Use History: None Reported - Past Family History Mother Additional Family Medical History / Comment(s): Bipolar Medications and Allergies Home Medications Medication Instructions Recorded Confirmed Type Citalopram Hydrobromide [CeleXA] 10 mg PO DAILY 07/06/22 12/08/22 History Labetalol [Trandate] 100 mg PO DAILY 07/06/22 12/08/22 History Omeprazole 40 mg PO DAILY 07/06/22 12/08/22 History Vit No.179/Iron/Folic 1 tab PO HS 07/06/22 12/08/22 History [ Tablet] Allergies Allergy/AdvReac Type Severity Reaction Status Date / Time latex AdvReac Itching Verified 12/08/22 23:10 Physical Exam Osteopathic Statement: *. No significant issues noted on an osteopathic structural exam other than those noted in the History and Physical/Consult. Vitals: Vital Signs Temp Pulse Resp BP 12/10/22 15:44 64 14 191/102 12/10/22 13:44 74 155/86 12/10/22 10:56 68 171/102 12/10/22 08:08 98.3 F 72 16 163/91 12/10/22 04:00 99.0 F 72 16 140/76 12/10/22 00:00 98.8 F 71 16 141/80 12/09/22 21:00 99.8 F H 68 16 154/83 12/09/22 19:50 144/100 Intake and Output 12/10/22 12/10/22 12/10/22 06:59 14:59 22:59 Other: # Voids 1 Weight 76.975 kg Results CBC & Chem 7: 12/10/22 16:56 12/10/22 16:56
[2022-12-10] MEDS ORDERED: MAG HYDROX/AL HYDROX/SIMETH 30 ML, HYOSCYAMINE ELIXIR 10 ML, LIDOCAINE VISCOUS 2% 10 ML PO ONE ×3 (17:30)
[2022-12-10 17:44] LABS: Anisocytosis Slight; Basophils % (A) 0 %; Eosinophils # (A) 0.1 k/uL (0-0.7); Eosinophils % (A) 2 %; HCT 33.6 % (34.0-46.0); HGB 10.6 gm/dL (11.4-16.0); Lymphocytes % (A) 25 %; MCH 25.5 pg (25.0-35.0); MCHC 31.6 g/dL (31.0-37.0); MCV 80.8 fL (80.0-100.0); Mean Platelet Volume 7.3; Monocytes # (A) 0.4 k/uL (0-1.0); Monocytes % (A) 5 %; Neutrophils # (A) 5.2 k/uL (1.3-7.7); Neutrophils % (A) 66 %; Platelet Count 370 k/uL (150-450); RBC 4.16 m/uL (3.80-5.40); RDW 16.6 % (11.5-15.5); WBC 7.8 k/uL (3.8-10.6)
[2022-12-10 17:52] LABS: ALT 26 U/L (4-34); AST 25 U/L (14-36); African American GFR (CKD) >90 (>60 ml/min/1.73 sqM); Albumin 3.9 g/dL (3.5-5.0); Alkaline Phosphatase 152 U/L (38-126); Anion Gap 10 mmol/L; Blood Urea Nitrogen 10 mg/dL (7-17); Calcium 8.8 mg/dL (8.4-10.2); Carbon Dioxide 26 mmol/L (22-30); Chloride 105 mmol/L (98-107); Glucose 91 mg/dL (74-99); Magnesium 2.6 mg/dL (1.6-2.3); Non-African American GFR(CKD) >90 (>60 ml/min/1.73 sqM); Potassium 3.7 mmol/L (3.5-5.1); Sodium 141 mmol/L (137-145); Total Bilirubin 0.3 mg/dL (0.2-1.3); Total Protein 7.1 g/dL (6.3-8.2)
[2022-12-11] MEDS: ACETAMINOPHEN TAB 325 MG TAB PO PRN (01:49)
[2022-12-11] MEDS: LABETALOL 200 MG TAB PO SCH (08:54)
[2022-12-11] MEDS ORDERED: NIFEdipine XL 30 MG TAB.ER.24 PO SCH ×2 (09:00)
[2022-12-11] MEDS ORDERED: PANTOPRAZOLE 40 MG TABLET PO SCH (09:00)
[2022-12-11] MEDS: CITALOPRAM HYDROBROMIDE 10 MG TAB PO SCH (09:01)
--- NOTE | 2022-12-11 09:50 | P.PN ---
Subjective Progress Note Date: 12/11/22 Principal diagnosis: hypertension day #8. She is feeling significantly better this morning. Ambulating without dizziness. Heartburn has resolved. Her last hypertensive episode was approximately 1545 yesterday. She was treated with IV hydralazine and 30 mg of nifedipine. She then had symptomatic hypotensive episode with syncope. Her blood pressures were 100s over 50s. This did resolve with IV fluid rehydration and observation. Throughout the night she reports no issues. This morning she received nifedipine 30 mg and labetalol 200 mg. Her blood pressures throughout the night were mainly in the 130s over 70s to 80s. She denies headaches, visual changes, nausea, vomiting or abdominal pain. Her lower extremity swelling is decreasing. She is ambulating and voiding without difficulty. She strongly desires discharge home. Objective - Vital Signs Vital signs: Vital Signs Temp 98.6 F 12/11/22 05:48 Pulse 86 12/11/22 05:48 Resp 16 12/11/22 05:48 BP 127/68 12/11/22 05:48 Pulse Ox 97 12/11/22 05:48 FiO2 Intake & Output 12/10/22 12/11/22 12/11/22 18:59 06:59 18:59 Output Total 75 Balance -75 Weight 75.296 kg Output: Urine 75 Other: # Voids 1 1 - Constitutional General appearance: Present: no acute distress - Respiratory Respiratory: bilateral: CTA - Cardiovascular Rhythm: regular - Gastrointestinal General gastrointestinal: Absent: tenderness - Neurologic Neurologic: Absent: focal deficits - Psychiatric Psychiatric: Present: appropriate affect - Labs CBC & Chem 7: 12/10/22 16:56 12/10/22 16:56 Labs: Abnormal Lab Results - Last 24 Hours (Table) 12/10/22 12/10/22 Range/Units 16:56 16:56 Hgb 10.6 L (11.4-16.0) gm/dL Hct 33.6 L (34.0-46.0) % RDW 16.6 H (11.5-15.5) % Magnesium 2.6 H (1.6-2.3) mg/dL Alkaline Phosphatase 152 H (38-126) U/L Assessment and Plan (1) hypertension Current Visit: Yes Status: Acute Code(s): O16.5 - UNSPECIFIED MATERNAL HYPERTENSION, COMP THE PUERPERIUM SNOMED Code(s): 86884759 (2) HTN (hypertension) Current Visit: No Status: Acute Code(s): I10 - ESSENTIAL (PRIMARY) H YPERTENSION SNOMED Code(s): 01928456 Plan: day #8 with readmission for poorly controlled chronic hypertension versus superimposed preeclampsia. She had significant hypertension yesterday afternoon followed by symptomatic hypotension after receiving antihypertensives. She has now been quite stable throughout the night with blood pressures mainly in the 130s over 70s to 80s. She is asymptomatic. Plan is for probable discharge home on nifedipine 30 mg extended release and labetalol 200 mg twice a day pending input from the medicine team which is appreciated. I recommend close follow-up for blood pressure evaluation in the office within 3-4 days of discharge. Signs and symptoms of hypertension were reviewed and the patient is going to be checking her blood pressures at home. She is advised to contact the on-call physician with any blood pressures systolic greater than 180 or diastolic greater than 100. Time with Patient: Less than 30
--- NOTE | 2022-12-11 09:58 | P.DS ---
Providers Date of admission: 12/08/22 23:43 Expected date of discharge: 12/11/22 Attending physician: Violeta Tran Consults: 12/10/22 16:00 Consult Physician Urgent Consulting Provider: Arelis Gotti Consult Reason/Comments: hypertension Do you want consulting provider notified?: Already Contacted Primary care physician: Stated None - Discharge Diagnosis(es) (1) hypertension Current Visit: Yes Status: Acute (2) HTN (hypertension) Current Visit: No Status: Acute Hospital Course: This is a 32-year-old 3 para 3 woman who had a normal spontaneous vaginal delivery on 12/03/2022, discharged on 12/05/2022. She reports presented with headaches, visual changes and elevated blood pressures. She was admitted for suspected preeclampsia and did receive magnesium sulfate seizure prophylaxis. Her laboratory data was normal. She has a known history of chronic hypertension and was treated throughout her . She had on labile blood pressures during her admission despite labetalol 200 mg twice a day and nifedipine 30 mg extended release was added. Medicine service was consulted. She required IV hydralazine as well as the additional nifedipine. She experienced a hypotensive episode on 12/10/2022 with syncope following the IV antihypertensives. Today she is feeling significantly better with stable blood pressures in the 130s over 70s to 80s. She is ambulating and voiding without difficulty. Laboratory data remains normal. The plan is for discharge home pending input from the medicine service on labetalol 200 mg twice a day and Procardia XL 30 mg. Blood pressure parameters have been reviewed with the patient and she will return to clinic for close blood pressure follow-up. Plan - Discharge Summary New Discharge Prescriptions: New NIFEdipine XL [Procardia XL] 30 mg PO DAILY #30 tab Labetalol [Trandate] 200 mg PO BID #60 tab Acetaminophen Tab [Tylenol] 650 mg PO Q6HR PRN tab PRN Reason: Fever And/ Or Pain Continue Citalopram Hydrobromide [CeleXA] 10 mg PO DAILY Vit No.179/Iron/Folic [ Tablet] 1 tab PO HS Discontinued Labetalol [Trandate] 100 mg PO DAILY No Action Omeprazole 40 mg PO DAILY Discharge Medication List Citalopram Hydrobromide [CeleXA] 10 mg PO DAILY 07/06/22 [History] Omeprazole 40 mg PO DAILY 07/06/22 [History] Vit No.179/Iron/Folic [ Tablet] 1 tab PO HS 07/06/22 [History] Acetaminophen Tab [Tylenol] 650 mg PO Q6HR PRN tab 12/11/22 [Rx] Labetalol [Trandate] 200 mg PO BID #60 tab 12/11/22 [Rx] NIFEdipine XL [Procardia XL] 30 mg PO DAILY #30 tab 12/11/22 [Rx] Follow up Appointment(s)/Referral(s): Violeta Tran DO [Doctor of Osteopathic Medicine] - 12/14/22 Activity/Diet/Wound Care/Special Instructions: Return to the emergency room with any systolic blood pressures greater than 180, diastolic blood pressures greater than 100, severe headache, visual changes, severe abdominal or pelvic pain, redness or swelling of the lower extremities. Discharge Disposition: HOME SELF-CARE
[2022-12-11 10:56] VITALS: BP 134/80; PULSE 72; RESP 18; TEMP 98.2
--- NOTE | 2022-12-11 11:18 | P.PN ---
Subjective Progress Note Date: 12/11/22 Hospital course: Patient is a 32-year-old female with a past medical history of anxiety, GERD, preeclampsia and gestational diabetes. She is currently admitted to mother baby unit status post vaginal delivery of her third child (healthy baby boy) on 12/03/22 () followed by discharge on 12/05/22 and returned 5 days later on 12/09/22 with a chief complaint of headache, visual changes and elevated blood pressures. Patient received magnesium infusion, placed on Labetalol 200 mg twice a day and started on nifedipine XL 30 mg daily. Patient did have full resolution of previously reported headache and visual changes but continued to be in hypertensive urgency. Patient's blood pressure 191/102 and we were consulted for assistance with management. Patient denies having any history of essential hypertension. Patient reports she had preeclampsia with her first but was never placed on antihypertensive medications, states her second was normal and her last she ended up being placed on labetalol late in her second trimester secondary to hypertension. EKG was completed showing normal sinus rhythm and 96 bpm with no significant T- wave or ST abnormalities showing no signs of acute ischemia. P labs stable with hemoglobin of 10.6 and mild elevation of magnesium 2.6 and alkaline phosphatase of 152. Blood pressure medication changes were made and patient was given a single dose of IV hydralazine resulting in normotensive pressures maintained for greater than 16 hours without any further interventions needed. Patient reports feeling great and denies having any complaints this morning. She had full resolution of heartburn/reflux, has had no further headaches or visual changes, and continues to deny having any chest pain or shortness of breath. She is medically cleared for discharge at this time. Patient educated on the importance of monitoring her blood pressures twice daily at home and documenting these findings in a daily log to bring with her to her next doctor's appointment as these medications will likely need to be titrated back down. Patient instructed to change positions slowly from lying to sitting, sitting to standing, and standing before walking. She was also instructed to hold blood pressure medication and call her DIRECTOR COUNCIL ON AGING for guidance on medication management in the event she notices a low blood pressure less than 100 systolic and to return to the emergency department if her systolic pressure becomes greater than 180 or diastolic pressures become greater than 100 or if she again develops persistent headache or visual changes. Recommend patient follow up outpatient with DIRECTOR COUNCIL ON AGING as sched uled and to return under management of PCP after 6 weeks . Physical exam: Vital signs reviewed and stable. General: Nontoxic, no distress and appears stated age. Derm: Skin warm and dry, normal coloration for ethnicity. Head: Atraumatic, normocephalic and symmetric. Eyes: EOMs intact, no lid lag, and anicteric sclera Mouth: no lip lesions, mucus membranes moist Cardiovascular: regular rate and rhythm with normal S1S2, no murmur, positive posterior tibial pulses bilaterally, and cap refill < 2 seconds. Lungs: Respirations even, regular, and unlabored on room air. Lungs CTA bilaterally, no rhonchi, no rales, no wheezing, and no accessory muscle usage. Abdominal: soft, nontender to palpation, no guarding Ext: ROM intact. No gross muscle atrophy, no edema, no contractures Neuro: Speech clear, face symmetrical and CN II-XII grossly intact with no noted focal neuro deficits Psych: Alert and oriented to person, place, time, and situation. Appropriate and pleasant affect. Assessment and Plan of Care: preeclampsia -Blood pressure stable. Patient medically cleared for discharge home. Recommending continuing labetalol 200 mg twice daily along with nifedipine XL 30 mg daily. -Patient educated on the importance of monitoring her blood pressures twice daily at home and documenting these findings in a daily log to bring with her to her next doctor's appointment as these medications will likely need to be titrated back down. -Patient instructed to change positions slowly from lying to sitting, sitting to standing, and standing before walking. -She was also instructed to hold blood pressure medication and call her DIRECTOR [employer]NCIL ON [employer]ING for guidance on medication management in the event she notices a low blood pressure less than 100 systolic and to return to the emergency department if her systolic pressure becomes greater than 180 or diastolic pressures become greater than 100 or if she again develops persistent headache or visual changes. GERD -Patient reports full resolution of heartburn and reflux status post GI cocktail administered yesterday evening. Anxiety -Patient to continue home medication with Celexa. Thank you for allowing us to participate in the care of this pleasant patient. Do not hesitate to contact us with questions. Someone can be reached from the [facility] hospitalist group all hours of the day at [phone] or via [employer].. Arash Pelaez NP rendered care for this patient independently, reviewed the findings and plan as documented in the note above. I did not physically speak with or examine the patient on this date. Objective - Vital Signs Vital signs: Vital Signs Temp 98.6 F 12/11/22 05:48 Pulse 86 12/11/22 05:48 Resp 16 12/11/22 05:48 BP 127/68 12/11/22 05:48 Pulse Ox 97 12/11/22 05:48 FiO2 Intake & Output 12/10/22 12/11/22 12/11/22 18:59 06:59 18:59 Output Total 75 Balance -75 Weight 75.296 kg Output: Urine 75 Other: # Voids 1 1 - Labs CBC & Chem 7: 12/10/22 16:56 12/10/22 16:56 Labs: Abnormal Lab Results - Last 24 Hours (Table) 12/10/22 12/10/22 Range/Units 16:56 16:56 Hgb 10.6 L (11.4-16.0) gm/dL Hct 33.6 L (34.0-46.0) % RDW 16.6 H (11.5-15.5) % Magnesium 2.6 H (1.6-2.3) mg/dL Alkaline Phosphatase 152 H (38-126) U/L
== END 2022-12-11 11:19 | disposition home or self-care (01) | DRG 776 ==
LOC: FBPOP 23:01 → 4FBP 23:43
PROVIDERS: ADMIT Obstetrics & Gynecology; ATTEND Obstetrics & Gynecology Obstetrics
DX: O16.5 Unspecified maternal hypertension, complicating the puerperium (principal); O14.95 Unspecified pre-eclampsia, complicating the puerperium; I16.0 Hypertensive urgency; K21.9 Gastro-esophageal reflux disease without esophagitis; O99.62 Diseases of the digestive system complicating childbirth; Z79.899 Other long term (current) drug therapy; Z86.32 Personal history of gestational diabetes
CPT/HCPCS: 80053; 81003; 82565; 82570; 83615; 83735; 84156; 84450; 84460; 84520; 84550; 85025; 93005; 99215

== ENCOUNTER 2022-12-11 21:00 | Inpatient (IN) | payer BC ==
[2022-12-11] MEDS ORDERED: hydrALAZINE HCL 20 MG/ML 1 ML VIAL IVP STA (21:45)
--- NOTE | 2022-12-11 22:20 | ED ---
General Adult HPI - General Chief complaint: Recheck/Abnormal Lab/Rx Stated complaint: high bp Time Seen by Provider: 12/11/22 21:24 Source: patient, family Limitations: no limitations - History of Present Illness Initial comments: This is a 32-year-old female with a past mental history including previous preeclampsia presents emergency department for recheck of her blood pressure. The patient recently gave to her third child on the eighth and was discharged on the 11 of this month. The patient then was readmitted back to the hospital due to increased blood pressure as she had chest pain, lightheadedness as well as blurry vision. The patient was admitted to the hospital and was discharged this morning from labor and delivery after a full preeclamptic workup. The patient did receive all medications and all her laboratory workup was within normal limits. The patient noted that her blood pressure did increase today significantly so she called her INDUCTION FURNACE OPERATOR and they did recommend increasing doses of labetalol. The patient did take 300 mg of labetalol since 4:30 PM. The patient then rechecked her blood pressure once again this evening and it was significantly elevated so she came back to the emergency department on the recommendation of her INDUCTION FURNACE OPERATOR. On evaluation, the patient denied of any pain or complaints. The patient denied any lightheadedness, dizziness, blurry vision as well as any nausea and vomiting. - Related Data Home Medications Medication Instructions Recorded Confirmed Citalopram Hydrobromide [CeleXA] 10 mg PO DAILY 07/06/22 12/08/22 Omeprazole 40 mg PO DAILY 07/06/22 12/08/22 Vit No.179/Iron/Folic 1 tab PO HS 07/06/22 12/08/22 [ Tablet] Previous Rx's Medication Instructions Recorded Acetaminophen Tab [Tylenol] 650 mg PO Q6HR PRN tab 12/11/22 Labetalol [Trandate] 200 mg PO BID #60 tab 12/11/22 NIFEdipine XL [Procardia XL] 30 mg PO DAILY #30 tab 12/11/22 Allergies Allergy/AdvReac Type Severity Reaction Status Date / Time latex AdvReac Itching Verified 12/11/22 21:18 Review of Systems ROS Statement: Those systems with pertinent positive or pertinent negative responses have been documented in the HPI. ROS Other: All systems not noted in ROS Statement are negative. Past Medical History Past Medical History: Hypertension Additional Past Medical History / Comment(s): GDM, vaginal delivery History of Any Multi-Drug Resistant Organisms: None Reported Past Surgical History: Cholecystectomy Past Anesthesia/Blood Transfusion Reactions: No Reported Reaction Past Psychological History: No Psychological Hx Reported Smoking Status: Never smoker Past Alcohol Use History: None Reported Past Drug Use History: None Reported - Past Family History Mother Additional Family Medical History / Comment(s): Bipolar General Exam Limitations: no limitations General appearance: alert, in no apparent distress Head exam: Present: atraumatic, normocephalic, normal inspection Eye exam: Present: normal appearance, PERRL Pupils: Present: normal accommodation ENT exam: Present: normal exam, normal oropharynx, mucous membranes moist Neck exam: Present: normal inspection, full ROM Respiratory exam: Present: normal lung sounds bilaterally Cardiovascular Exam: Present: regular rate, normal rhythm, normal heart sounds GI/Abdominal exam: Present: soft, normal bowel sounds Extremities exam: Present: normal inspection, full ROM, normal capillary refill Back exam: Present: normal inspection, full ROM Neurological exam: Present: alert, oriented X3, CN II-XII intact Psychiatric exam: Present: normal affect, normal mood Skin exam: Present: warm, dry Course Vital Signs 12/11/22 12/11/22 12/11/22 21:16 21:23 21:30 Temperature 97.6 F Pulse Rate 69 63 66 Respiratory 18 16 15 Rate Blood Pressure 153/102 162/107 162/107 O2 Sat by Pulse 96 97 97 Oximetry 12/11/22 22:00 Temperature Pulse Rate 59 L Respiratory 15 Rate Blood Pressure 172/99 O2 Sat by Pulse 98 Oximetry Medical Decision Making - Medical Decision Making Was pt. sent in by a medical professional or institution (, PA, BENCH CHEMIST, urgent care, hospital, or fpc...) When possible be specific @ -Yes, on-call INDUCTION FURNACE OPERATOR Did you speak to anyone other than the patient for history (EMS, parent, family, police, friend...)? What history was obtained from this source @ -Yes, patient's Did you review nursing and triage notes (agree or disagree)? Why? @ -I reviewed and agree with nursing and triage notes Were old charts reviewed (outside hosp., previous admission, EMS record, old EKG, old radiological studies, urgent care reports/EKG's, fpc records)? Report findings @ -Yes, previous admission notes were reviewed Differential Diagnosis (chest pain, altered mental status, abdominal pain women, abdominal pain men, vaginal bleeding, weakness, fever, dyspnea, syncope, headache, dizziness, GI bleed, back pain, seizure, CVA, palpatations, mental health)? @ -Preeclampsia, essential hypertension EKG interpreted by me (3pts min.). @ -None X-rays interpreted by me (1pt min.). @ -None done CT interpreted by me (1pt min.). @ -None done U/S interpreted by me (1pt. min.). @ -None done What testing was considered but not performed or refused? (CT, X-rays, U/S, labs)? Why? @ -None What meds were considered but not given or refused? Why? @ -None Did you discuss the management of the patient with other professionals (professionals i.e. , PA, BENCH CHEMIST, lab, RT, psych nurse, director social welfare, fish filleter, teacher, armed security officer, caser up)? Give summary @ -Yes, on-call INDUCTION FURNACE OPERATOR, Dr. Lechuga was contacted regarding the patient. She did state that the patient had a full workup for preeclampsia including treatment and was discharged today. She did recommend that the patient be admit julian to the medical team for cardiology evaluation with INDUCTION FURNACE OPERATOR on consult as she didn't think that this is now more than just an INDUCTION FURNACE OPERATOR-related issue. Was smoking cessation discussed for >3mins.? @ -No Was critical care preformed (if so, how long)? @ -No Were there social determinants of health that impacted care today? How? (Homelessness, low income, unemployed, alcoholism, drug addiction, transportation, low edu. Level, literacy, decrease access to med. care, group home, rehab)? @ -No Was there de-escalation of care discussed even if they declined (Discuss DNR or withdrawal of care, Hospice)? DNR status @ -No What co-morbidities impacted this encounter? (DM, HTN, Smoking, COPD, CAD, Cancer, CVA, ARF, Chemo, Hep., AIDS, mental health diagnosis, sleep apnea, morbid obesity)? @ -Previous episode of preeclampsia with previous Was patient admitted / discharged? Hospital course, mention meds given and route, prescriptions, significant lab abnormalities, going to OR and other per tinent info. @ -The patient was seen and evaluated in the emergency department. Physical exam, the patient was resting in bed without any acute distress. Vital signs at admission did show hypertension. The patient was given a dose of hydralazine as the patient had artery received 300 mg of by mouth labetalol. Due to the patient's of the INDUCTION FURNACE OPERATOR, the patient will be admitted to the medical team for further workup and evaluation of possible essential hypertension. The INDUCTION FURNACE OPERATOR interventional pain physician did state that it was unlikely that the patient had an INDUCTION FURNACE OPERATOR cause of the high blood pressure as she had a full workup for preeclampsia and was negative. The patient was told of this plan and was agreeable. The patient was admitted to the [facility] as they had been on consult earlier in the day for the patient. The patient had all of her questions answered appropriately and was admitted in stable condition. Undiagnosed new problem with uncertain prognosis? @ -No Drug Therapy requiring intensive monitoring for toxicity (Heparin, Nitro, Insulin, Cardizem)? @ -No Were any procedures done? @ -No Diagnosis/symptom? @ -Persistent hypertension, rule out essential hypertension Acute, or Chronic, or Acute on Chronic? @ -Acute Uncomplicated (without systemic symptoms) or Complicated (systemic symptoms)? @ -Uncomplicated Side effects of treatment? @ -No Exacerbation, Progression, or Severe Exacerbation? @ -No Poses a threat to life or bodily function? How? (Chest pain, USA, ID, pneumonia, PE, COPD, DKA, ARF, appy, cholecystitis, CVA, Diverticulitis, Homicidal, Suicidal, threat to staff... and all critical care pts) @ -No Disposition Clinical Impression: Hypertension Disposition: ADMITTED IP TO THIS [facility] Condition: Stable Is patient prescribed a controlled substance at d/c from ED?: No Referrals: Nonstaff,Physician [Primary Care Provider] - 1-2 days Time of Disposition: 21:50 Decision to Admit Reason: Admit from EC Decision Date: 12/11/22 Decision Time: 21:50
[2022-12-11] MEDS ORDERED: NALOXONE 0.4 MG/ML 1 ML VIAL IV PRN (22:35)
[2022-12-11 23:07] LABS: Anisocytosis Slight; Basophils % (A) 0 %; Eosinophils # (A) 0.1 k/uL (0-0.7); Eosinophils % (A) 1 %; HCT 33.6 % (34.0-46.0); HGB 10.5 gm/dL (11.4-16.0); Lymphocytes # (A) 2.2 k/uL (1.0-4.8); Lymphocytes % (A) 24 %; MCH 25.1 pg (25.0-35.0); MCHC 31.4 g/dL (31.0-37.0); MCV 79.9 fL (80.0-100.0); Mean Platelet Volume 7.7; Monocytes # (A) 0.4 k/uL (0-1.0); Monocytes % (A) 4 %; Neutrophils # (A) 6.3 k/uL (1.3-7.7); Neutrophils % (A) 69 %; Platelet Count 353 k/uL (150-450); RDW 16.7 % (11.5-15.5); WBC 9.2 k/uL (3.8-10.6)
[2022-12-11 23:17] LABS: Potassium 3.8 mmol/L (3.5-5.1)
[2022-12-11 23:18] LABS: ALT 24 U/L (4-34); AST 22 U/L (14-36); African American GFR (CKD) >90 (>60 ml/min/1.73 sqM); Alkaline Phosphatase 147 U/L (38-126); Anion Gap 10 mmol/L; Blood Urea Nitrogen 13 mg/dL (7-17); Calcium 9.3 mg/dL (8.4-10.2); Carbon Dioxide 23 mmol/L (22-30); Chloride 107 mmol/L (98-107); Glucose 107 mg/dL (74-99); Magnesium 1.9 mg/dL (1.6-2.3); Non-African American GFR(CKD) >90 (>60 ml/min/1.73 sqM); Sodium 140 mmol/L (137-145); Total Bilirubin 0.5 mg/dL (0.2-1.3); Total Protein 7.1 g/dL (6.3-8.2)
--- NOTE | 2022-12-12 00:28 | P.HPIM ---
History of Present Illness H&P Date: 12/11/22 The patient is a 32-year-old female with a PMH of chronic hypertension, status post spontaneous vaginal delivery on 12/03 with discharge on 12/05 and subsequent admission on 12/08 with concerns for preeclampsia. The patient's blood pressure had eventually stabilized and she was discharged home with labetalol 200 mg by mouth twice a day and nifedipine XL 30 mg by mouth daily earlier today. After returning home, the patient continued to check her blood pressure which remained elevated with systolic greater than 160 persistently. The patient took her labetalol dose at around 4:30 PM without significant improvement, at which point she contacted her TOBACCO DRYING MACHINE OPERATOR who advised her to go to the emergency room. While in the emergency room, the patient's BP was 160s/90s. At time of interview, she reported feeling at her baseline and had no active complaints. She reports coming to the hospital solely on the advice of her TOBACCO DRYING MACHINE OPERATOR. Denied experiencing headaches, chest discomfort, shortness of breath, blurred vision, nausea, vomiting, abdominal pain, diarrhea. Patient reports that she is currently not breast-feeding her and she does not plan on doing so. The case was discussed with the ED physician in extensive detail who noted that TOBACCO DRYING MACHINE OPERATOR felt that the patient now requires more mainline hypertension management as she no longer has symptoms of preeclampsia and had pre-existing hypertension prior to the . Laboratory evaluation was reviewed. Review of systems: Pertinent positives and negatives as discussed in HPI, a complete review of systems was performed and all other systems are negative. Physical examination: General: non toxic, no distress, appears at stated age, obese Derm: no unusual rashes/lesions, warm Head: atraumatic, normocephalic, symmetric Eyes: EOMI, no lid lag, anicteric sclera, pupils equal round reactive to light ENT: Nose and ears atraumatic Neck: No cervical lymphadenopathy, trachea midline, supple Mouth: no lip lesion, mucus membranes moist Cardiovascular: S1S2 reg, no murmur, positive dorsalis pedis pulse bilateral, no edema Lungs: CTA bilateral, no rhonchi, no rales, no accessory muscle use Abdominal: soft, nontender to palpation, no guarding Ext: muscle strength 5 out of 5 in all 4 extremities grossly, no gross muscle atrophy, no contractures, Neuro: CN II-XI grossly intact, no gross focal neuro deficits Psych: Alert, oriented, appropriate affect Assessment/plan Chronic hypertension with preeclampsia -Continue with home labetalol 200 mg by mouth twice a day. Increase nifedipine to 60 mg by mouth daily doses -Start hydralazine 25 mg 4 times a day -Fall precautions as patient previously had an episode of syncope in the hospi [facility] -Strict bedrest DVT prophylaxis -Heparin subq The patient is admitted with an anticipated greater than 2 midnight stay for evaluation of HTN CODE STATUS: Full Code Discussed with: Patient Anticipated discharge date: in am Anticipated discharge place: Home Past Medical History Past Medical History: Hypertension Additional Past Medical History / Comment(s): GDM, vaginal delivery History of Any Multi-Drug Resistant Organisms: None Reported Past Surgical History: Cholecystectomy Past Anesthesia/Blood Transfusion Reactions: No Reported Reaction Past Psychological History: No Psychological Hx Reported Smoking Status: Never smoker Past Alcohol Use History: None Reported Past Drug Use History: None Reported - Past Family History Mother Additional Family Medical History / Comment(s): Bipolar Medications and Allergies Home Medications Medication Instructions Recorded Confirmed Type Citalopram Hydrobromide [CeleXA] 10 mg PO DAILY 07/06/22 12/11/22 History Omeprazole 40 mg PO DAILY 07/06/22 12/11/22 History Vit No.179/Iron/Folic 1 tab PO HS 07/06/22 12/11/22 History [ Tablet] Acetaminophen Tab [Tylenol] 650 mg PO Q6HR PRN tab 12/11/22 12/11/22 Rx Labetalol [Trandate] 200 mg PO BID #60 tab 12/11/22 12/11/22 Rx NIFEdipine XL [Procardia XL] 30 mg PO DAILY #30 tab 12/11/22 12/11/22 Rx Allergies Allergy/AdvReac Type Severity Reaction Status Date / Time latex AdvReac Itching Verified 12/11/22 21:18 Physical Exam Vitals: Vital Signs Temp Pulse Resp BP Pulse Ox 12/11/22 23:26 73 25 H 149/87 96 12/11/22 23:15 73 18 147/93 97 12/11/22 23:07 59 L 16 158/92 98 12/11/22 23:00 53 L 17 162/99 98 12/11/22 22:30 59 L 22 169/96 98 12/11/22 22:00 59 L 15 172/99 98 12/11/22 21:30 66 15 162/107 97 12/11/22 21:23 63 16 162/107 97 12/11/22 21:16 97.6 F 69 18 153/102 96 Intake and Output 12/11/22 12/11/22 12/12/22 14:59 22:59 06:59 Other: Weight 75.296 kg Results CBC & Chem 7: 12/11/22 23:01 12/11/22 23:01 Labs: Abnormal Lab Results - Last 24 Hours (Table) 12/11/22 12/11/22 Range/Units 23:01 23:01 Hgb 10.5 L (11.4-16.0) gm/dL Hct 33.6 L (34.0-46.0) % MCV 79.9 L (80.0-100.0) fL RDW 16.7 H (11.5-15.5) % Glucose 107 H (74-99) mg/dL Alkaline Phosphatase 147 H (38-126) U/L
[2022-12-12] MEDS ORDERED: hydrALAZINE HCL 25 MG TAB PO SCH (00:30)
[2022-12-12] MEDS ORDERED: hydrALAZINE HCL 25 MG TAB PO PRN (07:06)
[2022-12-12 07:57] VITALS: RESP 18
[2022-12-12] MEDS: HEPARIN SODIUM,PORCINE/PF 5,000 UNIT/0.5 ML SYRINGE SQ SCH ×3 (08:49→23:41)
[2022-12-12] MEDS: LABETALOL 200 MG TAB PO SCH ×2 (08:49→21:32)
[2022-12-12] MEDS: PANTOPRAZOLE 40 MG TABLET PO SCH (08:49)
[2022-12-12] MEDS: CITALOPRAM HYDROBROMIDE 10 MG TAB PO SCH (08:50)
[2022-12-12] MEDS: NIFEdipine XL 30 MG TAB.ER.24 PO SCH ×2 (09:35→21:32)
--- NOTE | 2022-12-12 10:04 | P.PN ---
Subjective Progress Note Date: 12/12/22 Hospital course: Patient is a very pleasant 32-year-old female with a past medical history of anxiety, GERD, preeclampsia and gestational diabetes. She is currently admitted to mother baby unit status post vaginal delivery of her third child (healthy baby boy) on 12/03/22 () followed by discharge on 12/05/22 and returned 5 days later on 12/08/22 with a chief complaint of headache, visual changes and elevated blood pressures and was hospitalized from 12/08/22 through 12/11/22 for treatment of hypertensive urgency and concerns of preeclampsia. After blood pressure medication adjustments and stabilization of medications patient maintained normotensive blood pressures and was discharged home on new medication regimen with labetalol 200 mg twice a day and nifedipine XL 30 mg daily. Patient reports her blood pressures were again elevated after returning home and consistently stayed 140s to 160s systolic and upon final blood pressure check in the evening her blood pressure was 160s systolic over 109 diastolic and she called her HAND II TUBE BENDER who instructed her to return to the hospital. The patient denied having any accompanying complaints including headache, lightheadedness, dizziness, chest pain, palpitations, shortness of breath, or experiencing any numbness/tingling/weakness/swelling in her extremities. Patient denied history of hypertension prior to being diagnosed with preeclampsia but upon further review of her My Chart on [facility], it appears patient's blood pressures have been documented as 140s over 90s over the past couple years so she does have pre-exi sting hypertension. Upon arrival to the hospital, the patient did have elevated pressures of 153/102 and 162/107 with heart rate in 60s. Patient underwent full evaluation in the emergency department. Labs completed and reviewed. CBC revealing macrocytic anemia with hemoglobin stable at 10.5. BMP unremarkable. Liver enzymes showing slightly elevated alkaline phosphatase of 147. ProBNP negative at 33 and troponin less than 0.012. Patient was accepted for admission under our services. Patient reports that she is currently not breast-feeding her and she does not plan on doing so. Physical exam: Patient seen and fully evaluated at bedside this morning. Patient currently reports feeling at her baseline other than feeling slightly emotional from being back in the hospital and not being able to keep her son with her. She denies having any headache, lightheadedness, dizziness, chest pain, palpitations, shortness of breath, or experiencing any numbness/tingling/wea kness/swelling in her extremities. Morning labs were reviewed blood pressure was elevated at 145/84 with heart rate of 107 prior to medication administration. Nifedipine XL to be changed to 30 mg twice daily and we will repeat urinalysis. Vital signs reviewed and stable. General: Nontoxic, no distress and appears stated age. Derm: Skin warm and dry, normal coloration for ethnicity. Head: Atraumatic, normocephalic and symmetric. Eyes: EOMs intact, no lid lag, and anicteric sclera Mouth: no lip lesions, mucus membranes moist Cardiovascular: regular rate and rhythm with normal S1S2, no murmur, positive posterior tibial pulses bilaterally, and cap refill < 2 seconds. Lungs: Respirations even, regular, and unlabored on room air. Lungs CTA bilaterally, no rhonchi, no rales, no wheezing, and no accessory muscle usage. Abdominal: soft, nontender to palpation, no guarding, no appreciable organomegaly Ext: ROM intact. No gross muscle atrophy, no edema, no contractures Neuro: Speech clear, face symmetrical and CN II-XII grossly intact with no noted focal neuro deficits Psych: Alert and oriented to person, place, time, and situation. Appropriate and pleasant affect. Assessment and Plan of Care: Chronic essential hypertension with preeclampsia -Continue labetalol 200 mg by mouth twice a day and Increased nifedipine XL to 30 mg BID -Start hydralazine 25 mg 4 times a day as needed for uncontrolled hypertension -Fall precautions as patient previously had an episode of orthostatic hypotension in the hospital -Telemetry monitoring -Echocardiogram -Urinalysis -Patient was asked to bring in blood pressure cuff to compare with hospital cuff to assess accuracy of home cuff. GERD -Continue home medication regimen with omeprazole 40 mg each morning. Anxiety -Patient to continue home medication with Celexa. CODE STATUS: Full code DVT prophylaxis: Heparin Discussed with: patient, patient's , and RN Anticipated discharge date: Likely within the next 24-[address]: Home A total of 36 minutes was spent on the care of this complex patient more than 50% of the time was spent in counseling and care coordination. Objective - Vital Signs Vital signs: Vital Signs Temp 98.5 F 12/12/22 07:36 Pulse 107 H 12/12/22 07:36 Resp 18 12/12/22 07:36 BP 145/84 12/12/22 07:36 Pulse Ox 98 12/12/22 07:36 FiO2 Intake & Output 12/11/22 12/12/22 12/12/22 18:59 06:59 18:59 Weight 75.296 kg Other: # Voids 1 - Labs CBC & Chem 7: 12/11/22 23:01 12/11/22 23:01 Labs: Abnormal Lab Results - Last 24 Hours (Table) 12/11/22 12/11/22 Range/Units 23:01 23:01 Hgb 10.5 L (11.4-16.0) gm/dL Hct 33.6 L (34.0-46.0) % MCV 79.9 L (80.0-100.0) fL RDW 16.7 H (11.5-15.5) % Glucose 107 H (74-99) mg/dL Alkaline Phosphatase 147 H (38-126) U/L
--- NOTE | 2022-12-12 10:11 | P.OBCN ---
History of Present Illness Consult date: 12/12/22 Reason for consult: medical complication (Hypertension) Chief complaint: hypertension History of present illness: This is a 32 year old woman who is day 9 status post uncomplicated vaginal delivery on 12/03/2022. She was readmitted on 12/08/2022 for elevated blood pressures. She was treated as a presumptive preeclamptic and received magnesium sulfate seizure prophylaxis and antihypertensives. Laboratory data was all within normal limits. Following discontinuation of her magnesium sulfate her blood pressures were initially well controlled however became labile. She received scheduled labetalol and nifedipine as well as additional IV hydralazine. Her blood pressures then did eventually stabilized and she was discharged home on 12/11/2022 with oral labetalol and nifedipine. The afternoon following discharge her home blood pressures began to increase. She took 300 mg of labetalol and still had diastolic blood pressures greater than 105 therefore was advised to return to the emergency room. Initial evaluation in the emergency room showed significant hypertension with blood pressures in the 170s over 110s. She is therefore be admitted for hypertensive control. This morning she reports feeling very well. She denies headaches, visual changes, shortness of breath or chest pain. She has no lower extremity edema. Her vaginal bleeding is minimal. She does occasionally feel hot and sweaty which she correlates with elevated blood pressures. She is not breast-feeding and denies breast engorgement or pain. Review of Systems All systems: negative Past Medical History Past Medical History: Hypertension Additional Past Medical History / Comment(s): GDM, vaginal delivery History of Any Multi-Drug Resistant Organisms: None Reported Past Surgical History: Cholecystectomy Past Anesthesia/Blood Transfusion Reactions: No Reported Reaction Additional Past Anesthesia/Blood Transfusion Reaction / Comm: nausea Past Psychological History: No Psychological Hx Reported Smoking Status: Never smoker Past Alcohol Use History: None Reported Past Drug Use History: None Reported - Past Family History Mother Additional Family Medical History / Comment(s): Bipolar Father Family Medical History: Diabetes Mellitus Medications and Allergies Home Medications Medication Instructions Recorded Confirmed Type Citalopram Hydrobromide [CeleXA] 10 mg PO DAILY 07/06/22 12/11/22 History Omeprazole 40 mg PO DAILY 07/06/22 12/11/22 History Vit No.179/Iron/Folic 1 tab PO HS 07/06/22 12/11/22 History [ Tablet] Acetaminophen Tab [Tylenol] 650 mg PO Q6HR PRN tab 12/11/22 12/11/22 Rx Labetalol [Trandate] 200 mg PO BID #60 tab 12/11/22 12/11/22 Rx NIFEdipine XL [Procardia XL] 30 mg PO DAILY #30 tab 12/11/22 12/11/22 Rx Allergies Allergy/AdvReac Type Severity Reaction Status Date / Time latex AdvReac Itching Verified 12/11/22 21:18 Exam Vital Signs Temp Pulse Pulse Resp BP BP Pulse Ox 12/12/22 07:36 98.5 F 107 H 18 145/84 98 12/12/22 02:17 84 128/74 12/12/22 00:20 97.0 F L 87 15 153/84 99 12/11/22 23:58 81 26 H 149/88 97 12/11/22 23:26 73 25 H 149/87 96 12/11/22 23:15 73 18 147/93 97 12/11/22 23:07 59 L 16 158/92 98 12/11/22 23:00 53 L 17 162/99 98 12/11/22 22:30 59 L 22 169/96 98 12/11/22 22:00 59 L 15 172/99 98 12/11/22 21:30 66 15 162/107 97 12/11/22 21:23 63 16 162/107 97 12/11/22 21:16 97.6 F 69 18 153/102 96 Intake and Output 12/11/22 12/12/22 12/12/22 22:59 06:59 14:59 Other: # Voids 1 Weight 75.296 kg 75.296 kg This is a pleasant and comfortable appearing female in no acute distress. HEENT exam unremarkable. Breathing is unlabored. Heart is a regular rate and rhythm. The abdomen is soft and nontender. Lower extremities with no evidence of edema erythema or asymmetry. Results Result Diagrams: 12/11/22 23:01 12/11/22 23:01 Abnormal Lab Results - Last 24 Hours (Table) 12/11/22 12/11/22 Range/Units 23:01 23:01 Hgb 10.5 L (11.4-16.0) gm/dL Hct 33.6 L (34.0-46.0) % MCV 79.9 L (80.0-100.0) fL RDW 16.7 H (11.5-15.5) % Glucose 107 H (74-99) mg/dL Alkaline Phosphatase 147 H (38-126) U/L Assessment and Plan Assessment: Labile hypertension, Plan: 32 year old 3 now para 3 woman with labile hypertension on on day #9. Currently on labetalol 200 mg twice a day and nifedipine XL 30 mg twice a day. Oral hydralazine was held through the night for blood pressure parameters. Most recent blood pressure 145/84. She is feeling well this morning. Cardiac echo is planned. Time with Patient: Less than 30
[2022-12-12 10:23] LABS: Appearance,Urine Clear (Clear); Bacteria,Urine Rare /hpf; Bilirubin,Urine Negative (Negative); Blood,Urine Large (Negative); Color,Urine Yellow; Glucose,Urine (UA) Negative (Negative); Ketones,Urine Negative (Negative); Leukocyte Esterase,Urine Moderate (Negative); Mucus,Urine Occasional /hpf; Nitrite,Urine Negative (Negative); Protein,Urine Trace (Negative); RBC,Urine 13 /hpf (0-5); Specific Gravity,Urine 1.011 (1.001-1.035); Squamous Epithelial Cell,Urine 3 /hpf (0-4); Urobilinogen,Urine <2.0 mg/dL (<2.0); WBC,Urine 10 /hpf (0-5)
[2022-12-12] MEDS: lisinopriL 5 MG TAB PO SCH (12:19)
[2022-12-12] MEDS ORDERED: PRENATAL VIT-IRON-FOLIC ACID 1 EACH TABLET PO SCH (21:00)
[2022-12-13] MEDS: CITALOPRAM HYDROBROMIDE 10 MG TAB PO SCH (08:53)
[2022-12-13] MEDS: HEPARIN SODIUM,PORCINE/PF 5,000 UNIT/0.5 ML SYRINGE SQ SCH ×2 (08:53→17:18)
[2022-12-13] MEDS: PANTOPRAZOLE 40 MG TABLET PO SCH (08:53)
[2022-12-13] MEDS: lisinopriL 5 MG TAB PO SCH (08:53)
[2022-12-13] MEDS: NIFEdipine XL 30 MG TAB.ER.24 PO SCH (09:04)
[2022-12-13] MEDS: LABETALOL 200 MG TAB PO SCH (09:04)
--- NOTE | 2022-12-13 13:17 | P.PN ---
Subjective Progress Note Date: 12/13/22 Hospital course: Patient is a very pleasant 32-year-old female with a past medical history of anxiety, GERD, preeclampsia and gestational diabetes. She is currently admitted to mother baby unit status post vaginal delivery of her third child (healthy baby boy) on 12/03/22 () followed by discharge on 12/05/22 and returned 5 days later on 12/08/22 with a chief complaint of headache, visual changes and elevated blood pressures and was hospitalized from 12/08/22 through 12/11/22 for treatment of hypertensive urgency and concerns of preeclampsia. After blood pressure medication adjustments and stabilization of medications patient maintained normotensive blood pressures and was discharged home on new medication regimen with labetalol 200 mg twice a day and nifedipine XL 30 mg daily. Patient reports her blood pressures were again elevated after returning home and consistently stayed 140s to 160s systolic and upon final blood pressure check in the evening her blood pressure was 160s systolic over 109 diastolic and she called her GAME TRAPPER who instructed her to return to the hospital. The patient denied having any accompanying complaints including headache, lightheadedness, dizziness, chest pain, palpitations, shortness of breath, or experiencing any numbness/tingling/weakness/swelling in her extremities. Patient denied history of hypertension prior to being diagnosed with preeclampsia but upon further review of her My Chart on [facility], it appears patient's blood pressures have been documented as 140s over 90s over the past couple years so she does have pre- existing hypertension. Upon arrival to the hospital, the patient did have elevated pressures of 153/102 and 162/107 with heart rate in 60s. Patient underwent full evaluation in the emergency department. Labs completed and reviewed. CBC revealing macrocytic anemia with hemoglobin stable at 10.5. BMP unremarkable. Liver enzymes showing slightly elevated alkaline phosphatase of 147. ProBNP negative at 33 and troponin less than 0.012. Patient was accepted for admission under our services. Patient reports that she is currently not breast-feeding her and she does not plan on doing so. Physical exam: Patient seen and fully evaluated at bedside this morning. She remains free from any complaints at this time including headache, lightheadedness, dizziness, chest pain, palpitations, shortness of breath, or experiencing any numbness/tingling/weakness/swelling in her extremities. She has had controlled blood pressures throughout the night with current blood pressure 124/76. No medication changes to be made at this time, patient to remain on nifedipine, labetalol, and lisinopril. Awaiting echocardiogram to be completed then likely discharge. Vital signs reviewed and stable. General: Nontoxic, no distress and appears stated age. Derm: Skin warm and dry, normal coloration for ethnicity. Head: Atraumatic, normocephalic and symmetric. Eyes: EOMs intact, no lid lag, and anicteric sclera Mouth: no lip lesions, mucus membranes moist Cardiovascular: regular rate and rhythm with normal S1S2, no murmur, positive posterior tibial pulses bilaterally, and cap refill < 2 seconds. Lungs: Respirations even, regular, and unlabored on room air. Lungs CTA bilaterally, no rhonchi, no rales, no wheezing, and no accessory muscle usage. Abdominal: soft, nontender to palpation, no guarding, no appreciable organo megaly Ext: ROM intact. No gross muscle atrophy, no edema, no contractures Neuro: Speech clear, face symmetrical and CN II-XII grossly intact with no noted focal neuro deficits Psych: Alert and oriented to person, place, time, and situation. Appropriate and pleasant affect. Assessment and Plan of Care: Chronic essential hypertension with preeclampsia -Continue labetalol 200 mg by mouth twice a day and Increased nifedipine XL to 30 mg BID -Patient started on lisinopril 5 mg daily secondary to findings of proteinuria, patient educated that this medication as tetrogenic and cannot take is , plan to become again or breast-feeding. -Fall precautions as patient previously had an episode of orthostatic hypotension in the hospital -Telemetry monitoring -Echocardiogram -Patient was asked to bring in blood pressure cuff to compare with hospital cuff to assess accuracy of home cuff. GERD -Continue home medication regimen with omeprazole 40 mg each morning. Anxiety -Patient to continue home medication with Celexa. CODE STATUS: Full code DVT prophylaxis: Heparin Discussed with: patient, patient's , and RN Anticipated discharge date: Likely within the next 24 hours, awaiting echocardiogram to be completed Anticipated discharge place: Home A total of 33 minutes was spent on the care of this complex patient more than 50% of the time was spent in counseling and care coordination. Objective - Vital Signs Vital signs: Vital Signs Temp 98.7 F 12/13/22 07:28 Pulse 89 12/13/22 07:28 Resp 18 12/13/22 07:28 BP 124/76 12/13/22 07:28 Pulse Ox 99 12/13/22 07:28 FiO2 Intake & Output 12/12/22 12/13/22 12/13/22 18:59 06:59 18:59 Intake Total 400 Balance 400 Intake: Oral 400 Other: # Voids 3 2 - Labs CBC & Chem 7: 12/11/22 23:01 12/11/22 23:01 Labs: Abnormal Lab Results - Last 24 Hours (Table) 12/12/22 Range/Units 09:37 Urine Protein Trace H (Negative) Urine Blood Large H (Negative) Ur Leukocyte Esterase Moderate H (Negative) Urine RBC 13 H (0-5) /hpf Urine WBC 10 H (0-5) /hpf Urine Bacteria Rare H (None) /hpf Urine Mucus Occasional H (None) /hpf
[2022-12-13 13:23] VITALS: PULSE 66; TEMP 97.8
[2022-12-13 14:29] VITALS: BP 148/87
--- NOTE | 2022-12-13 17:33 | CA ---
Transthoracic Echo Report Name: Jennifer Dye Age: 32 Gender: F : 1990 Exam Date: 12/13/2022 14:32 Exam Location: [facility] Ht (in): 51 Wt (lb): 166 Ordering Physician: Arash Pelaez Attending/Referring Phys: Collections Assistant Rama Flores RDCS Procedure CPT: Indications: uncontrolled hypertension, Cardiac Hx: Technical Quality: Fair Contrast 1: Total Dose (mL): Contrast 2: Total Dose (mL): MEASUREMENTS (Male / Female) Normal Values 2D ECHO LV Diastolic Diameter PLAX 4.3 cm 4.2 - 5.9 / 3.9 - 5.3 cm LV Systolic Diameter PLAX 2.1 cm IVS Diastolic Thickness 1.4 cm 0.6 - 1.0 / 0.6 - 0.9 cm LVPW Diastolic Thickness 1.4 cm 0.6 - 1.0 / 0.6 - 0.9 cm LV Relative Wall Thickness 0.7 RV Internal Dim ED PLAX 3.1 cm LA Volume 51.4 cm??? 18 - 58 / 22 - 52 cm??? M-MODE Aortic Root Diameter MM 2.8 cm LA Systolic Diameter MM 3.9 cm LA Ao Ratio MM 1.4 AV Cusp Separation MM 1.6 cm DOPPLER AV Peak Velocity 171.8 cm/s AV Peak Gradient 11.8 mmHg LVOT Peak Velocity 127.7 cm/s LVOT Peak Gradient 6.5 mmHg MV Area PHT 3.3 cm??? Mitral E Point Velocity 108.8 cm/s Mitral A Point Velocity 78.3 cm/s Mitral E to A Ratio 1.4 MV Deceleration Time 228.9 ms MV E' Velocity 10.2 cm/s Mitral E to MV E' Ratio 10.7 TR Peak Velocity 298.0 cm/s TR Peak Gradient 35.5 mmHg Right Ventricular Systolic Press 39.3 mmHg FINDINGS Left Ventricle Moderately increased septal wall thickness. Moderately increased posterior wall thickness. Normal Left ventricular size, systolic function with no obvious regional wall motion abnormalities. Normal Left ventricular diastolic filling pattern. Left ventricular ejection fraction is estimated at 55-60 %. Right Ventricle Normal right ventricular size and function. Mild pulmonary hypertension. Right Atrium Normal right atrial size. Left Atrium Normal left atrial size. Mitral Valve Structurally normal mitral valve. Mild mitral regurgitation. Aortic Valve Trileaflet aortic valve. No aortic valve stenosis or regurgitation. Tricuspid Valve Structurally normal tricuspid valve. Mild tricuspid regurgitation. Pulmonic Valve Trace pulmonic regurgitation. Pericardium No pericardial effusion. Aorta Normal size aortic root and proximal ascending aorta. CONCLUSIONS Mild LVH with preserved systolic function Previewed by: Dr. José Antonio Spears MD (Electronically Signed) Final Date: 13 December 2022 17:32
--- NOTE | 2022-12-13 18:58 | P.DS ---
Providers Date of admission: 12/11/22 22:35 Expected date of discharge: 12/13/22 Attending physician: Heather Stratton MD Consults: 12/11/22 22:35 Consult Physician Routine Consulting Provider: Sarah Lechuga Consult Reason/Comments: Persistent hypertension, s/p 12/05/22 with completed pre-E workup Do you want consulting provider notified?: Already Contacted Primary care physician: Physician Nonstaff Hospital Course: Chronic essential hypertension with preeclampsia GERD Anxiety Patient is a very pleasant 32-year-old female with a past medical history of anxiety, GERD, preeclampsia and gestational diabetes. She was admitted to mother baby unit status post vaginal delivery of her third child (healthy baby boy) on 12/03/22 () followed by discharge on 12/05/22 and returned 5 days later on 12/08/22 with a chief complaint of headache, visual changes and elevated blood pressures and was hospitalized from 12/08/22 through 12/11/22 for treatment of hypertensive urgency and concerns of preeclampsia. After blood pressure medication adjustments and stabilization of medications patient maintained normotensive blood pressures and was discharged home on new medication regimen with labetalol 200 mg twice a day and nifedipine XL 30 mg daily. Patient reports her blood pressures were again elevated after returning home and consistently stayed 140s to 160s systolic and upon final blood pressure check in the evening her blood pressure was 160s systolic over 109 diastolic and she called her CLINICAL SUPPORT SPECIALIST who instructed her to return to the hospital. Upon arrival to the hospital, the patient did have elevated pressures of 153/102 and 162/107 with heart rate in 60s. Patient underwent full evaluation in the emergency department. Labs completed and reviewed. CBC revealing macrocytic anemia with hemoglobin stable at 10.5. BMP unremarkable. Liver enzymes showing slightly el evated alkaline phosphatase of 147. ProBNP negative at 33 and troponin less than 0.012. Patient was accepted for admission under our services. She had her nifedipine increased to 30mg XL BID, and had repeat UA which showed trace proteinuria. She was subsequently started on lisinopril 5mg daily for proteinuria and HTN - counseled extensively on importance of stopping this medication if she becomes again or chooses to breast feed. Echo showed areas of septal and posterior wall thickening, but preserved EF; mild pHTN. She will f/u with CLINICAL SUPPORT SPECIALIST, PCP, and cardiology given echo findings. I spent 32 minutes coordinating this discharge, on 12/13. Gen: in no apparent distress, resting comfortably in bed Eyes: PERRL, no scleral injection or icterus HENT: normocephalic, atraumatic, good hearing acuity, moist mucous membranes Neck: no tracheal deviation, full range of motion Resp: good air exchange, breathing comfortably with no accessory muscle use, no tactile fremitus, CVS: good distal perfusion x 4, no bilateral pitting edema, regular rate and rhythm without appreciable murmurs GI: soft, NTTP, ND, no hepatosplenomegaly : no suprapubic tenderness, no CVAT, fraire catheter not present MSK: no clubbing, no cyanosis, no noted contractures of extremities Skin: no noted rashes, petechiae; temperature of skin is appropriate Neuro: moving all extremities without signs of weakness, CN II-XII intact Psych: cooperative, euthymic mood, insight and judgment intact Patient Condition at Discharge: Good Plan - Discharge Summary Discharge Rx Participant: No New Discharge Prescriptions: New lisinopriL [Zestril] 5 mg PO DAILY #30 tab NIFEdipine XL [Procardia XL] 30 mg PO BID #34 tab Continue Omeprazole 40 mg PO DAILY Citalopram Hydrobromide [CeleXA] 10 mg PO DAILY Vit No.179/Iron/Folic [ Tablet] 1 tab PO HS Labetalol [Trandate] 200 mg PO BID #60 tab Acetaminophen Tab [Tylenol] 650 mg PO Q6HR PRN tab PRN Reason: Fever And/ Or Pain Discontinued NIFEdipine XL [Procardia XL] 30 mg PO DAILY #30 tab Discharge Medication List Citalopram Hydrobromide [CeleXA] 10 mg PO DAILY 07/06/22 [History] Omeprazole 40 mg PO DAILY 07/06/22 [History] Vit No.179/Iron/Folic [ Tablet] 1 tab PO HS 07/06/22 [History] Acetaminophen Tab [Tylenol] 650 mg PO Q6HR PRN tab 12/11/22 [Rx] Labetalol [Trandate] 200 mg PO BID #60 tab 12/11/22 [Rx] NIFEdipine XL [Procardia XL] 30 mg PO BID #34 tab 12/13/22 [Rx] lisinopriL [Zestril] 5 mg PO DAILY #30 tab 12/13/22 [Rx] Follow up Appointment(s)/Referral(s): Nonstaff,Physician [Primary Care Provider] - 1-2 days
== END 2022-12-13 19:52 | disposition home or self-care (01) | DRG 776 ==
LOC: EC 21:00 → 5NMEDONC 22:35 → UNDOADMIN 22:35 → 4SSUR 22:35
PROVIDERS: ADMIT Internal Medicine; ATTEND Internal Medicine
DX: O11.5 Pre-existing hypertension with pre-eclampsia, complicating the puerperium (principal); O10.03 Pre-existing essential hypertension complicating the puerperium; K21.9 Gastro-esophageal reflux disease without esophagitis; D53.9 Nutritional anemia, unspecified; F41.9 Anxiety disorder, unspecified; Z91.040 Latex allergy status; Z79.899 Other long term (current) drug therapy; Z86.32 Personal history of gestational diabetes; Z28.310 Unvaccinated for COVID-19
CPT/HCPCS: 80053; 81001; 83735; 83880; 84484; 85025; 93306; 96374; 99284